=== PATIENT | male | born 1945 | race Caucasian/White ===

== ENCOUNTER 2020-03-03 15:22 | Inpatient (IN) | payer MEDICARE, BC, SELFPAY ==
--- NOTE | ~2020-03-03 | XR_ITS ---
EXAMINATION: XR chest 1V portable EXAM DATE: 03/03/2020 16:37 INDICATION: Low blood sugar. Altered mental status. TECHNIQUE: Portable AP frontal chest x-ray was obtained. There is no prior study for comparison. FINDINGS: There is ill-defined retrocardiac density suspected which could be developing pneumonia. Th e lungs are otherwise clear. There are no pleural effusions. The cardiomediastinal silhouette is wi thin normal limits. There is no pneumothorax suspected. There are bony degenerative changes. There is aortic arterial sclerosis. IMPRESSION: Suspect developing subsegmental left lower lobe pneumonia. Reviewed, dictated and finalized at location A.
--- NOTE | ~2020-03-03 | US_ITS ---
EXAMINATION: US arterial duplex LE DATE: 03/04/2020 12:56 INDICATION: Peripheral vascular disease. TECHNIQUE: Multiple grayscale and Doppler ultrasound images of the arteries of the bilateral lower li mbs were obtained. COMPARISON: None FINDINGS: There are triphasic waveforms at the right common femoral, profunda femoral and proximal to distal ri ght superficial femoral artery with brisk systolic upstrokes throughout. The more distal arteries are not visualized due to a right [id number]-[id number]-vllf amputation. Relatively symmetric triphasic waveforms wi th brisk systolic upstrokes in the left common femoral, profunda femoral and proximal superficial fem oral arteries. This gradually transitions to monophasic waveforms in the mid left superficial femoral artery and extending distally to the left popliteal artery where there is some shadowing atheroscler otic plaque. There is a 2.2 fold increase of the peak systolic velocity proximal and distal to the pl aque in the left popliteal artery which approaches but does not exceed the 2.4 fold increase which in some stasis been used indicating a greater than 50% stenosis. There continue to be sharp systolic pe aks with brisk upstrokes in the more distal left posterior tibial, peroneal and anterior tibial arter ies. IMPRESSION: 1. No ultrasound findings to suggest hemodynamically significant stenosis in either lower limb. Reviewed, dictated and finalized at location A. IMPRESSION: 1. No ultrasound findings to suggest hemodynamically significant stenosis in ei ther lower limb.
--- NOTE | ~2020-03-03 | XR_ITS ---
EXAMINATION: XR foot LT min 3V EXAM DATE: 03/03/2020 16:38 INDICATION: Open wounds 2 foot. TECHNIQUE: Left foot dorsoplantar, lateral and oblique projections obtained and reviewed. Correlation is made to tibia-fibula exam same date. FINDINGS: Left metatarsal bones unremarkable. There is moderate-sized inferior calcaneal spur. The re is benign-appearing bony protuberance at the superior aspect of the talar beak seen on lateral pro jection, finding indicated. This could be sequela from an old avulsion injury. No evidence of cortica l disruption or erosion. There are no acute fractures or dislocations identified. There is no subcutaneous gas. There are ar terial calcifications, arteriosclerosis. There are no bony erosions identified. There are no radio paque foreign bodies. IMPRESSION: Chronic findings as above. Reviewed, dictated and finalized at location A. IMPRESSION: Chronic findings as above.
--- NOTE | ~2020-03-03 | XR_ITS ---
EXAMINATION: XR tibia fibula LT 2V EXAM DATE: 03/03/2020 16:38 INDICATION: Open wound. Left leg and foot. TECHNIQUE: Left tibia/fibula frontal and lateral projections obtained and reviewed. There is no prio r study for comparison. FINDINGS: Left tibial and fibular shafts unremarkable. There are no acute fractures or dislocations identified. There is no subcutaneous gas. There are arterial calcifications, arteriosclerosis. Ther e is mild polyarticular primary osteoarthritis. There are no radiopaque foreign bodies. IMPRESSION: Chronic findings as above. Reviewed, dictated and finalized at location A. IMPRESSION: Chronic findings as above.
--- NOTE | ~2020-03-03 | MR_ITS ---
EXAMINATION: MR foot LT wo/w con DATE: 03/07/2020 13:04 INDICATION: Left-sided osteomyelitis. TECHNIQUE: Magnetic resonance imaging (MRI) of the left foot was performed without and with 13 mL Mul tiHance intravenous contrast. Sequences included sagittal STIR FSE and T1-weighted FSE and short-axis and long-axis T1-weighted FSE and T2-weighted FS FSE. Postcontrast sequences included short-axis and long-axis T1-weighted FS FSE. COMPARISON: Left foot radiographs 03/03/2020 FINDINGS: Bone alignment is normal. No fracture. There is an ulcer lateral to lateral malleolus. Ther e is bone marrow edema involving the distal 6 cm of the fibula consistent with osteoarthritis. There is an ulcer posterolateral to calcaneal tuberosity. There is bone marrow edema involving calcaneal tu berosity and calcaneal body, consistent with osteomyelitis. There is an ulcer lateral to base of fift h metatarsal. There is bone marrow edema involving the proximal 3 cm of fifth metatarsal, consistent with osteomyelitis. There is moderate osteoarthritis of subtalar joint and calcaneocuboid joint. Ther e is mild osteoarthritis of the ankle joint and many of the midfoot joints. There is a small effusion of the subtalar joint. There is thickening of central band of plantar fascia, consistent with fascii tis. There is increased T2-weighted signal intensity, enhancement, and moderate to severe fatty atrop hy of all the musculature, consistent with subacute on chronic denervation. There is mild peroneus br omkar tendinopathy and Achilles tendinopathy. Lisfranc ligament is intact. There is subcutaneous edema in the dorsum of the foot. IMPRESSION: 1. Osteomyelitis involving the distal fibula, base of fifth metatarsal, and calcaneus. Reviewed, dictated and finalized at location E. IMPRESSION: 1. Osteomyelitis involving the distal fibula, base of fifth metatarsal, and willian caneus.
--- NOTE | ~2020-03-03 | MR_ITS ---
EXAMINATION: MR lower leg LT wo/w con DATE: 03/07/2020 13:00 INDICATION: Left lower leg osteomyelitis. TECHNIQUE: Magnetic resonance imaging (MRI) of the left tibia and fibula was performed without and wi th 13 mL MultiHance intravenous contrast. Sequences included axial T2-weighted FS FSE, T1-weighted FS E, and T1-weighted FS FSE, coronal and sagittal T1-weighted FSE and STIR FSE, and postcontrast axial T1-weighted FS FSE. COMPARISON: Left tibia and fibula radiographs 03/03/2020 FINDINGS: Bone alignment is normal. No fracture. There are multiple skin defects at the lateral aspec t of the lower leg. There is bone marrow edema of the distal 26 cm of the fibula including the middle and distal thirds with some areas of cortical erosion, consistent with osteoarthritis. There are par tial tears of peroneus longus and peroneus brevis tendons. There is moderate to severe fatty atrophy of all of the musculature. There is increased T2-weighted signal intensity and enhancement involving the majority of the musculature with an anterior predominance, consistent with subacute on chronic de nervation with or without myositis. There is mild Achilles tendinopathy. IMPRESSION: 1. Osteomyelitis involving the middle and distal thirds of the fibula. 2. Diffusely abnormal musculature, consistent with subacute on chronic denervation, likely with some component of superimposed myositis. 3. Partial tears of peroneus brevis and peroneus longus tendons. Reviewed, dictated and finalized at location E. IMPRESSION: 1. Osteomyelitis involving the middle and distal thirds of the fibula. 2. Diffusely abnormal musculature, consistent with subacute on chronic denervat ion, likely with some component of superimposed myositis. 3. Partial tears of peroneus brevis and peroneus longus tendons.
[2020-03-03 15:33] LABS: Glucose Point of Care 56 (65-105)
--- NOTE | 2020-03-03 15:40 | ECG_ITS ---
Measurements Intervals [place] Rate: 92 P: 29 WV: 199 QRS: -60 QRSD: 111 T: 56 QT: 378 QTc: 468 Interpretive Statements SINUS RHYTHM INCOMPLETE RIGHT BUNDLE BRANCH BLOCK LEFT ANTERIOR FASCICULAR BLOCK BASELINE WANDER- I, II, III ABNORMAL ECG Electronically Signed On 03-03-2020 15:54:05 CDT by Cristi Dinero D.O.
[2020-03-03] MEDS: DEXTROSE 50% 25 GM/50 ML SYRINGE (15:41)
[2020-03-03 15:52] LABS: Glucose Point of Care 160 (65-105)
[2020-03-03 15:55] VITALS: BP 145/63; PULSE 90; RESP 21; TEMP 36.2; O2SAT 100
[2020-03-03 16:04] LABS: Add Urine Microscopic? YES; Appearance Urine Clear (Clear); Bilirubin Urine Negative (Negative); Blood Urine Negative (Negative); Color Urine Yellow (Yellow); Glucose Urine UA Negative (Negative); Ketones Urine Negative (Negative); Leukocyte Esterase Ur Negative LEU/UL (Negative); Mucus Urine Rare /lpf; Nitrate Urine Negative (Negative); Protein Urine Negative (Negative); RBC Urine 0-2 /hpf (0-2); Specific Grav Ur 1.014 (1.001-1.035); WBC Urine 0-3 /hpf
[2020-03-03 17:00] LABS: Hematocrit 38.9 % (42.0-52.0); Hemoglobin 12.5 g/dL (14.0-18.0); Mean Corpuscular HGB Conc 32.1 g/dl (32-36); Mean Corpuscular Hemoglobin 26.8 pg (26-34); Mean Corpuscular Volume 83.3 fl (80-100); Mean Platelet Volume 9.5 fl (7.4-10.4); Platelet Count Result 443 k/mm3 (150-375); Red Blood Count 4.67 M/mm3 (4.6-6.20); Red Cell Distribution Width 12.8 % (11.5-14.5); White Blood Count 21.6 K/mm3 (4.5-10.0)
[2020-03-03 17:11] LABS: Alanine Aminotransferase 19 U/L (4-50); Albumin Level 3.3 g/dL (3.5-5.1); Alkaline Phosphatase 225 U/L (38-126); Aspartate Amino Transferase 32 U/L (17-59); Bilirubin,Total 0.6 mg/dL (0.2-1.3); Blood Urea Nitrogen 19 mg/dL (9-20); Calcium 8.8 mg/dL (8.4-10.2); Carbon Dioxide 32 mmol/L (22-30); Chloride 96 mmol/L (98-107); Estimated CRCL calculation 63 ml/min; Estimated Glomerular Filt Rate > 60; Glucose 102 mg/dL (75-110); Sodium 135 mmol/L (137-145)
[2020-03-03 17:12] LABS: Lactic Acid Reflex 1.4 mmol/L (0.7-2.1)
[2020-03-03 17:20] LABS: Band Neutrophils Percent 1 % (0-6); Lymphocytes Absolute Manual 0.86 K/mm3 (1.1-4.5); Monocytes Absolute Manual 1.29 K/mm3 (0.1-0.90); Monocytes Percent Manual 6 % (3-9); Neutrophils Absolute Manual 19.44 K/mm3 (1.3-6.7); Neutrophils Percent Manual 89 % (46-73); Platelet Estimate Increased (Adequate); Total Cells Counted 100
--- NOTE | 2020-03-03 17:34 | PC.NURSE ---
RN at bedside now trying to get cultures.
[2020-03-03 17:35] VITALS: BP 157/63; PULSE 89; RESP 15; O2SAT 94
--- NOTE | 2020-03-03 17:39 | ED.GENADULT ---
HPI - General Adult General Chief complaint: Altered Mental Status Stated complaint: AMS/LOW BLOOD SUGAR Time Seen by Provider: 03/03/20 15:30 History of Present Illness HPI narrative: Patient is a 74-year-old male who presents to the ER from [facility] with altered mental status. Staff reports that patient's Accu-Chek was low and he gave glucagon and the Accu-Chek remained in the 50s. Patient received D50 here but still remains oriented x2. Patient was [facility] who is concerned patient may be septic. Reports patient could have UTI or could be related to some pressure ulcers of the left lower extremity. Due to the COVID pandemic he has not been able to have the ulcers fully worked up. Ulcerations are located to the lateral aspect of the foot at the distal fifth metatarsal and the proximal heel. They also extend up the lateral calf region and extend into the muscle. There is no purulent drainage. There is no cellulitis. Related Data Home Medications Medication Instructions Recorded Confirmed Daily Multivitamin 1 cap BYMOUTH DAILY 10/02/19 10/02/19 Florastor 250 mg PO DAILY 10/02/19 10/02/19 Januvia 100 mg PO DAILY 10/02/19 10/02/19 L.acidophilus-Bifido.longum 16 mg PO DAILY 10/02/19 10/02/19 ascorbic acid (vitamin C) 500 mg BYMOUTH DAILY 10/02/19 10/02/19 aspirin [Aspirin Low Dose] 81 mg PO DAILY 10/02/19 10/02/19 atorvastatin 20 mg PO HS 10/02/19 10/02/19 metformin 500 mg PO BID 10/02/19 10/02/19 nitrofurantoin macrocrystal 100 mg PO Q12H 10/02/19 10/02/19 zinc sulfate 220 mg PO DAILY 10/02/19 10/02/19 atorvastatin 03/03/20 insulin glargine [Lantus U-100 SUBCUT 03/03/20 Insulin] insulin lispro unit SUBCUT 03/03/20 metoclopramide HCl 5 mg PO DAILY 03/03/20 03/03/20 Allergies Allergy/AdvReac Type Severity Reaction Status Date / Time No Known Allergies Allergy Verified 03/03/20 16:13 Review of Systems Review of Systems: ROS unobtainable: Yes unobtainable due to mental status PMFSH Past Medical History Medical History (Updated 03/03/20 @ 17:56 by Ubaldo Keller MD) Appendicitis Diabetes mellitus with peripheral vascular disease Diabetic neuropathy HLD (hyperlipidemia) PVD (peripheral vascular disease) Surgical History Surgical History History of orchiectomy left Hx of appendectomy Hx of right BKA Hx of tonsillectomy Social History Social History Social History: patient currently resides at [facility] for rehab. He is . He has 3 sons. He designates his son Gabo Rojas as his POA. He wishes to be a DNR. Smoking packs per day: 1 Smoking cigarettes per day: 20.0 Years smoked: 20 Smoking pack-years: 20.00 Smoking status: Former smoker Alcohol intake: never Substance use: never Additional living arrangements comments: Patient currently at 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 Gender identity (if verbalized by the patient): Male Spiritual care concerns: No Agree to blood products: Yes Exam Narrative: Exam Narrative: GENERAL: Chronically ill-appearing and thin, and in no acute distress. HEAD: Normocephalic, atraumatic. EYES: PERRL and EOMI. ENT: Dry mucous membranes. CHEST: Clear to auscultation. No respiratory distress. HEART: Regular rate and rhythm. Normal peripheral pulses. ABDOMEN: Soft, nontender, nondistended. EXTREMITIES: Moves upper extremities well. Chronic weakness lower extremities. The left foot is very dry and cracked. There are pressure ulcerations going to subcutaneous tissue of the foot at the distal foot laterally and into the muscle lateral heel. There is a very large proximal ulceration to the lateral calf that extends into the muscles. There is no purulent drainage or surrounding cellulitis noted. SKIN: Warm, dry, ulcers as noted above N
[2020-03-03 18:31] VITALS: BP 153/88; PULSE 92
[2020-03-03 19:00] LABS: Glucose Point of Care 151 (65-105)
--- NOTE | 2020-03-03 19:42 | PC.NURSE ---
PTs sons name is Gabo Rojas, called to check on pt. phone number is [phone]
[2020-03-03 20:10] VITALS: BP 149/89; PULSE 94; RESP 18; O2SAT 97
[2020-03-03 20:30] VITALS: BP 132/62; PULSE 85; RESP 18; TEMP 36.5; O2SAT 97
[2020-03-03 21:00] VITALS: PULSE 84
[2020-03-03] MEDS: SODIUM CHLORIDE 0.9% IV 1,000 ML 125 ML IV CONT (22:03)
[2020-03-03 23:24] LABS: Glucose Point of Care 179 (65-105)
--- NOTE | 2020-03-03 23:39 | ADMGEN ---
This patient, Eugenio Rojas, was admitted to [facility] Surg Room 332-01. Patient/family oriented to hospital policies and general routines including ID bracelet, bed and alarms, visiting hours, pain management, procedures, bathroom and other care routines, personal items, smoking policy, room service/diet, and visiting hours. Valuables list has been completed. Information on how to activate the Rapid Response Team has been discussed. Patient/Family are encouraged to report perceived risks to care and to ask questions if they do not understand what they are told or what they should do.
[2020-03-04] VITALS (12 sets, daily range): BP systolic 126–137; BP diastolic 43–70; PULSE 59–88; RESP 16–18; TEMP 36.3–36.8; O2SAT 94–97
--- NOTE | 2020-03-04 | ECHO_ITS ---
Patient Info Name: Eugenio Rojas Age: 74 years : 1945 Gender: Male Ht: 71 in Wt: 143 lbs BSA: 1.79 m2 HR: 79 bpm BP: 126 / 70 mmHg Technical Quality: Good Exam Date: 03/04/2020 3:43 PM Exam Location: [facility] Pulmonary Exam Room: 332 Patient Status: Inpatient Admit Date: 03/04/2020 Staff Ordering Physician: Ascencion Christy MD Cable Tv Installer: Cass Lemos RDCS Attending Provider: Anita Monzon PA-C Referring Physician: [facility] Exam Type: CA echo doppler color flow Study Info Indications - chf Complete two-dimensional, color flow and Doppler transthoracic echocardiogram is performed. Summary 1. Left ventricular systolic function is normal, estimated at 65-70%. 2. There is mildly increased left ventricular wall thickness. 3. The left ventricular diastolic function is grade I diastolic dysfunction. Left Ventricle Left ventricular chamber dimension is normal. Left ventricular systolic function is normal, estimated at 65-70%. There is mildly increased left ventricular wall thickness. Left ventricular septal wall motion is normal. The left ventricular diastolic function is grade I diastolic dysfunction. Right Ventricle Right ventricular chamber dimension is normal. Right ventricular systolic function is normal. Left Atria Left atrial chamber dimension is mildly enlarged. Right Atria Right atrial chamber dimension is normal. Aortic Valve The aortic valve is trileaflet. There is mild aortic valve sclerosis. There is no aortic valve stenosis. There is no aortic valve regurgitation. Pulmonic Valve The pulmonic valve is normal. There is no pulmonic valve stenosis. There is no pulmonic regurgitation. Mitral Valve The mitral valve has normal leaflets. There is no mitral valve stenosis. There is trace mitral valve regurgitation. Tricuspid Valve The tricuspid valve leaflets are normal. There is no significant tricuspid valve stenosis. There is no tricuspid valve regurgitation. No pulmonary hypertension, estimated pulmonary arterial systolic pressure is 23 mmHg. Pericardium/Pleural The pericardium appears normal. There is no pericardial effusion. Inferior Vena Cava Normal inferior vena cava with >50% collapse upon inspiration consistent with normal right atrial pressure, 10 mmHg. Aorta The aortic root size at the sinus of Valsalva is normal. The prox ascending aorta size is normal. Left Ventricular Outflow Tract Name Value Normal LVOT 2D LVOT Diameter 2.0 cm LVOT Doppler LVOT Peak Gradient 3 mmHg LVOT Mean Gradient 2 mmHg LVOT VTI 20 cm LVOT VTI/AV VTI Ratio 0.7 LVOT Stroke Volume 63 ml LVOT CO 12.0 l/min LVOT CI 6.7 l/min/m2 Pulmonic Valve Name Value Normal
--- NOTE | 2020-03-04 02:55 | PM.IMHP ---
H&P: HPI History of Present Illness Chief complaint: AMS, Hypoglycemia, Pneumonia, Pressure Ulcers Narrative: Date and time of patient contact: 03/03/2020 at 11:45 p.m. Eugenio Rojas is a 74 year old male with past medical history of insulin-dependent diabetes, and peripheral vascular disease who presented to the ER from [facility] with altered mental status and low blood sugar. Patient is reportedly alert orient x4 at baseline but is only been alert and orient x1 for the last 2 days. Patient's blood sugar was 39 at lunch and he was given glucose. Despite glucagon patient's glucoses were 59 on EMS arrival. The patient was alert orient x2 in the ER and at the time of my evaluation. The halfway physician was concerned that the patient may be septic. The patient has had some ulcers on his left lower extremity. When he was Ms. the hospital in September 2019 he had a left heel ulcer that appear to be healing well at the time. Now he has a ulcer on his lateral left foot,, left heel, lateral left ankle, and extending up through the calf. He has multiple areas of eschar in the ulcerations extended into the muscle. There is no obvious purulence drainage or cellulitis. Patient has been afebrile since presentation. He reports pain to the left lower extremity with movement of the leg. He has already had a right [id number] amputation. The patient has been in [facility] since May when he fell in resulting in abrasion and cellulitis to his stump. Since he was placed in the halfway he has had a significant decline in his condition. The patient does have stage II-III decubitus ulcers to his buttocks as well which are new. The patient's son's reported to nursing staff that the patient has had a significant decline in condition patient has been incontinent of urine and depends are in place. Source of information is past medical records and ER records. Patient self is a poor historian. He spent a great deal of the time that was in the room staring off into space. Prior documentation states the patient wanted to be a DNR. However his papers from the halfway indicate that he is full code. The patient is unable to communicate his desires at this time due to his mental status. Review of Systems Review of Systems: Narrative: 12 systems were reviewed with pertinent positives and negatives per HPI. Except as documented in the HPI, all other systems were reviewed and are negative. However there limited as the patient is an extremely poor historian. [facility] Past Medical History Medical History (Updated 03/04/20 @ 08:31 by Carolina Landis DO) Acute urinary retention September 2019 due to fecal impact Chronic pancreatitis Noted on imaging September 2019 Diabetes mellitus with peripheral vascular disease Diabetic neuropathy HLD (hyperlipidemia) PVD (peripheral vascular disease) Surgical History Surgical History History of orchiectomy left Hx of appendectomy Hx of right BKA Hx of tonsillectomy Family History Family History Father Congestive heart failure Mother , age 95 No problems noted. Sibling , sister at age 69; had drug addiction Drug addiction Social History Social History Social History: patient currently resides at [facility] for rehab. He is . He has 3 sons. He designates his son Gabo Rojas as his POA. He wishes to be a DNR. 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 Gender identity (if verbalized
[2020-03-04] MEDS: HEPARIN SOD/D5W 100 UNITS/ML 25,000 UNITS/250 ML BAG 12 UNITS IV CONT (03:29)
[2020-03-04] MEDS: SODIUM CHLORIDE 0.9% IV 1,000 ML 125 ML IV CONT (05:54)
[2020-03-04 06:27] LABS: Basophils Absolute Auto 0.1 K/mm3 (0.0-0.1); Basophils Percent Auto 0.6 % (0.2-1.2); Eosinophils Absolute Auto 0.2 K/mm3 (0-0.3); Eosinophils Percent Auto 1.7 % (0-4.4); Hemoglobin 11.1 g/dL (14.0-18.0); Immature Granulocyte Absolute 0.06 K/mm3 (0.00-0.031); Immature Granulocyte Percent A 0.5 % (0-0.5); Lymphocytes Absolute Auto 0.75 K/mm3 (0.9-3.2); Lymphocytes Percent Auto 6.1 % (18.3-44.2); Mean Corpuscular HGB Conc 31.7 g/dl (32-36); Mean Corpuscular Hemoglobin 26.9 pg (26-34); Mean Corpuscular Volume 84.7 fl (80-100); Mean Platelet Volume 9.5 fl (7.4-10.4); Monocytes Absolute Auto 1.2 K/mm3 (0.1-0.6); Monocytes Percent Auto 9.3 % (2.6-8.5); Neutrophils Absolute Auto 10.1 K/mm3 (1.3-6.7); Neutrophils Percent Auto 81.8 % (45.5-73.1); Platelet Count Result 381 k/mm3 (150-375); Red Blood Count 4.13 M/mm3 (4.6-6.20); Red Cell Distribution Width 12.9 % (11.5-14.5); White Blood Count 12.3 K/mm3 (4.5-10.0)
[2020-03-04 06:36] LABS: INR 1.4; Prothrombin Time 16.3 Seconds (11.1-14.7)
[2020-03-04 06:37] LABS: Partial Thromboplastin Time 56.5 SECONDS (22.3-36.8)
[2020-03-04 06:43] LABS: Blood Urea Nitrogen 18 mg/dL (9-20); Calcium 8.2 mg/dL (8.4-10.2); Carbon Dioxide 32 mmol/L (22-30); Chloride 98 mmol/L (98-107); Estimated CRCL calculation 82 ml/min; Estimated Glomerular Filt Rate > 60; Glucose 159 mg/dL (75-110); Potassium 3.7 mmol/L (3.4-5.0); Sodium 134 mmol/L (137-145)
[2020-03-04 08:23] LABS: Cholesterol 80 mg/dL (0-200); HDL Direct 21 mg/dL; Triglycerides 60 mg/dL (<150)
[2020-03-04 08:34] LABS: LDL Cholesterol Direct 41 mg/dL
[2020-03-04] MEDS: SODIUM CHLORIDE 0.9% IV 500 ML 100 ML IV CONT ×2 (09:35→17:30)
--- NOTE | 2020-03-04 09:36 | PM.CNCAR ---
Assessment and Plan Assessment and plan (1) Hypoglycemia associated with diabetes: Code(s): E11.649 - Type 2 diabetes mellitus with hypoglycemia without coma Status: Acute (2) Pneumonia: Qualifiers: Laterality: left Lung location: lower lobe of lung Pneumonia type: due to unspecified organism Qualified Code(s): J18.9 - Pneumonia, unspecified organism Code(s): J18.9 - Pneumonia, unspecified organism Status: Acute Assessment and Plan: Currently he is on IV antibiotics, white count is improving, will check blood culture before we proceed with any procedures (3) Altered mental status: Code(s): R41.82 - Altered mental status, unspecified Status: Acute (4) Leg ulcer, left: Qualifiers: Non-pressure ulcer stage: with necrosis of muscle Qualified Code(s): L97.923 - 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 Code(s): L97.929 - Non-pressure chronic ulcer of unspecified part of left lower leg with unspecified severity Status: Acute Assessment and Plan: Luis F has severe peripheral vascular disease with chronic ulcer, but now with diminished flow, and limb threatening ischemia. Will obtain arterial duplex to localize the narrowing and disease, he will need to have angiogram and possible intervention for revascularization, will plan this once his white count is down and if his blood cultures are negative (5) Diabetes mellitus with peripheral vascular disease: Code(s): E11.51 - Type 2 diabetes mellitus with diabetic peripheral angiopathy without gangrene Status: Acute (6) PVD (peripheral vascular disease): Code(s): I73.9 - Peripheral vascular disease, unspecified Status: Acute Assessment and Plan: Severe with previous amputation of the right leg below the knee, now with threatening ischemia of the left leg (7) Non-healing ulcer of left ankle: Code(s): L97.329 - Non-pressure chronic ulcer of left ankle with unspecified severity Status: Acute Assessment and Plan: The ulcer seems to be chronic but there is red marking surrounding the lesion, definitely he needs to have revascularization to improve the healing of the ulcer. After revascularization he would need debridement, or possible distal amputation, depending on the results after revascularization (8) Critical lower limb ischemia: Code(s): I99.8 - Other disorder of circulatory system Status: Acute Assessment and Plan: Will plan peripheral angiogram with possible intervention possibly tomorrow if blood cultures are negative and his white blood cell count is back to normal Additional Plan Thank you for allowing me to participate in this patient's care, I will be following up with you. Please do not hesitate to call me for any other inquiry History of Present Illness History of Present Illness Consult date/time: 03/04/20 09:36 74 years old gentleman, with history of hypertension, history of stroke and history of peripheral vascular disease previous amputation to the right [id number], was admitted to the hospital due to mental status changes noted to have significant elevation of white blood cell count, and noted to have severe ulceration of the left ankle and left lateral side of the lower portion of the left leg, he has chronic pain there, I was asked to see him for possible treatment from cardiovascular point of view, in view of limb threatening ischemia. The patient himself is not very good history most of the history was taken from the chart, reviewing other provider's note, apparently the patient came in with mental status changes noted to have pneumonia and elevated white blood cell count, currently he is on IV heparin due to a ischemia of the leg and he is on IV antibiotics due to the possible suspected pneumonia. His white blood cell count improved but still elevated today. He has mild-to-mod
[2020-03-04] MEDS: polyethylene glycoL 3350 17 GM POWD.PACK PO (09:38)
[2020-03-04] MEDS: ASPIRIN 81 MG ENTERIC TABLET PO (09:38)
[2020-03-04] MEDS: MULTIVITAMINS THERAPEUTIC TAB (*BKC) 1 TABLET PO (09:38)
[2020-03-04 10:54] LABS: Partial Thromboplastin Time 107.2 SECONDS (22.3-36.8)
[2020-03-04 12:02] LABS: Glucose Point of Care 165 (65-105)
[2020-03-04 14:01] LABS: Glucose Point of Care 273 (65-105)
[2020-03-04 14:02] LABS: SARS-CoV-2 RNA PCR Negative
[2020-03-04] MEDS: INSULIN ASPART (*BKC) 100 UNITS/ML SUB-Q (14:45)
--- NOTE | 2020-03-04 15:25 | PM.IMPN ---
Progress Note: A&P Assessment and Plan (1) Sepsis: Qualifiers: Sepsis type: sepsis due to unspecified organism Code(s): A41.9 - Sepsis, unspecified organism Status: Acute Assessment and Plan: The patient met SIRS criteria at admission with tachypnea and leukocytosis. The suspected source is pneumonia versus his left lower extremity ulcer. He is on IV antibiotics and IV fluids. Blood cultures and wound cultures are pending. He is hemodynamically stable. Continue IV antibiotics Continue to monitor (2) Pneumonia: Qualifiers: Laterality: left Lung location: lower lobe of lung Pneumonia type: due to unspecified organism Qualified Code(s): J18.9 - Pneumonia, unspecified organism Code(s): J18.9 - Pneumonia, unspecified organism Status: Acute Assessment and Plan: CXR revealed density in the left lower lobe suspicious for pneumonia. WBC at admission was 21,600. WBC today is 12,300 and is predominantly neutrophils. COVID-19 testing was negative. He is stable on room air. He does not complain of SOB, cough, fever, or chills today. 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 He is being treated empirically with IV ceftriaxone and vancomycin. Dr. Hays is on board for concomitant PAD with critical limb threatening ischemia. Preliminary wound cultures reveal gram negative bacilli. Continue empiric IV ceftriaxone and vancomycin and await final wound cultures Will consult Dr. Hays for possible vascular intervention (4) PVD (peripheral vascular disease): Code(s): I73.9 - Peripheral vascular disease, unspecified Status: Acute Assessment and Plan: The patient presents with critical limb threatening ischemia of the left lower extremity. He has a right BKA. He is on heparin gtt. Dr. Christy is on board. Arterial duplex revealed triphasic waveforms in the left common femoral, profunda, and proximal SFA which becomes monophasic in the mid left SFA extending distally to the left popliteal. The patient has non-palpable left DP and PT. Left femoral and popliteal pulses are palpable. Continue heparin gtt Continue ASA EC 81mg Continue atorvastatin Await further recommendations from Dr. Christy which are greatly appreciated. The plan is for possible LLE peripheral angiogram with possible intervention tomorrow pending blood cultures and CBC. (5) Hypoglycemia associated with diabetes: Code(s): E11.649 - Type 2 diabetes mellitus with hypoglycemia without coma Status: Acute Assessment and Plan: Blood sugars were reviewed and are acceptable. Blood sugar this afternoon was elevated at 273. Continue lantus 20 units HS, will titrate as needed Continue low-dose sliding scale insulin Continue accu-cheks ACHS Continue hypoglycemia (6) COVID-19 ruled out: Code(s): Z03.818 - Encounter for observation for suspected exposure to other biological agents ruled out Status: Acute Assessment and Plan: The patient was tested for COVID-19 which is negative. Discontinue isolation (7) HLD (hyperlipidemia): Code(s): E78.5 - Hyperlipidemia, unspecified Status: Acute Assessment and Plan: Lipid panel was repeated and reveals LDL 41, HDL 21, and total cholesterol 80. Continue atorvastatin (8) Altered mental status: Code(s): R41.82 - Altered mental status, unspecified Status: Acute Assessment and Plan
[2020-03-04] MEDS: SILVERGEL (ELTA) 45 ML 1 APPLIC TOPICAL (17:55)
[2020-03-04] MEDS: METOCLOPRAMIDE HCL 5 MG TABLET PO ×2 (17:56→21:29)
[2020-03-04 17:58] LABS: Glucose Point of Care 188 (65-105)
[2020-03-04] MEDS: ATORVASTATIN 20 MG TABLET PO (21:29)
[2020-03-04] MEDS: INSULIN GLARGINE (*BKC) 100 UNITS/ML 20 UNITS SUB-Q (21:37)
--- NOTE | 2020-03-04 21:54 | PC.NURSE ---
Electrical Wiring Lineman unable to draw for PPT orders, they're sending another person to try.
[2020-03-04 22:58] LABS: Glucose Point of Care 237 (65-105)
--- NOTE | 2020-03-04 23:00 | PC.NURSE ---
Patient refusing to get drawn by lab for PTT due to heparin drip. He was explained the importance for the lab draw several times.
[2020-03-05] VITALS (22 sets, daily range): BP systolic 130–166; BP diastolic 39–85; PULSE 61–76; RESP 9–18; TEMP 36.2–36.4; O2SAT 96–100
[2020-03-05] MEDS: HEPARIN SODIUM 5,000 UNITS/ML VIAL 5000 UNITS IV PUSH (01:01)
[2020-03-05] MEDS: SODIUM CHLORIDE 0.9% IV 500 ML 100 ML IV CONT (02:12)
[2020-03-05] MEDS: HEPARIN SOD/D5W 100 UNITS/ML 25,000 UNITS/250 ML BAG 14 UNITS IV CONT (04:52)
[2020-03-05] MEDS: METOCLOPRAMIDE HCL 5 MG TABLET PO ×2 (06:57→22:14)
[2020-03-05 07:16] LABS: Basophils Absolute Auto 0.1 K/mm3 (0.0-0.1); Basophils Percent Auto 0.7 % (0.2-1.2); Eosinophils Absolute Auto 0.6 K/mm3 (0-0.3); Hematocrit 32.8 % (42.0-52.0); Hemoglobin 10.4 g/dL (14.0-18.0); Immature Granulocyte Absolute 0.03 K/mm3 (0.00-0.031); Immature Granulocyte Percent A 0.4 % (0-0.5); Lymphocytes Absolute Auto 0.89 K/mm3 (0.9-3.2); Lymphocytes Percent Auto 10.6 % (18.3-44.2); Mean Corpuscular HGB Conc 31.7 g/dl (32-36); Mean Corpuscular Hemoglobin 26.5 pg (26-34); Mean Corpuscular Volume 83.7 fl (80-100); Mean Platelet Volume 9.6 fl (7.4-10.4); Monocytes Absolute Auto 0.9 K/mm3 (0.1-0.6); Monocytes Percent Auto 10.5 % (2.6-8.5); Neutrophils Absolute Auto 5.9 K/mm3 (1.3-6.7); Neutrophils Percent Auto 70.8 % (45.5-73.1); Platelet Count Result 337 k/mm3 (150-375); Red Blood Count 3.92 M/mm3 (4.6-6.20); Red Cell Distribution Width 12.6 % (11.5-14.5); White Blood Count 8.4 K/mm3 (4.5-10.0)
[2020-03-05 07:24] LABS: Alanine Aminotransferase 14 U/L (4-50); Albumin Level 2.5 g/dL (3.5-5.1); Alkaline Phosphatase 136 U/L (38-126); Aspartate Amino Transferase 22 U/L (17-59); Bilirubin,Total 0.2 mg/dL (0.2-1.3); Blood Urea Nitrogen 11 mg/dL (9-20); Calcium 7.9 mg/dL (8.4-10.2); Carbon Dioxide 33 mmol/L (22-30); Chloride 100 mmol/L (98-107); Estimated CRCL calculation 97 ml/min; Estimated Glomerular Filt Rate > 60; Glucose 156 mg/dL (75-110); Magnesium 1.7 mg/dL (1.6-2.3); Potassium 3.4 mmol/L (3.4-5.0); Sodium 137 mmol/L (137-145)
[2020-03-05 08:14] LABS: Partial Thromboplastin Time > 200.0 SECONDS (22.3-36.8)
[2020-03-05] MEDS: SODIUM CHLORIDE 0.9% IV 1,000 ML 100 ML IV CONT (08:18)
[2020-03-05 08:58] LABS: Glucose Point of Care 142 (65-105)
[2020-03-05] MEDS: MULTIVITAMINS THERAPEUTIC TAB (*BKC) 1 TABLET PO (09:34)
[2020-03-05] MEDS: ASPIRIN 81 MG ENTERIC TABLET PO (09:37)
[2020-03-05] MEDS: SILVERGEL (ELTA) 45 ML 1 APPLIC TOPICAL (10:12)
--- NOTE | 2020-03-05 11:45 | PC.NURSE ---
Patient to r&d lab technician patient saline locked at this time.
--- NOTE | 2020-03-05 12:08 | WPDMODSED ---
Moderate Sedation Note-Pt Data Patient Data Allergies Allergy/AdvReac Type Severity Reaction Status Date / Time No Known Allergies Allergy Verified 03/03/20 16:13 Home Medications Medication Instructions Recorded Confirmed Type Daily Multivitamin 1 cap BYMOUTH DAILY 10/02/19 03/03/20 History Januvia 100 mg PO DAILY 10/02/19 03/03/20 History aspirin [Aspirin Low Dose] 81 mg PO DAILY 10/02/19 03/03/20 History metformin 500 mg PO BID 10/02/19 03/03/20 History metoclopramide HCl [Reglan] 5 mg PO ACHS 30 Days #120 tablet 10/05/19 03/03/20 Rx polyethylene glycol 3350 [Miralax] 17 g PO Q12HR 30 Days #60 each 10/05/19 03/03/20 Rx amino acids-protein hydrolys 30 ea PO BID 03/03/20 03/03/20 History [Pro-Stat Sugar Free] atorvastatin 20 mg PO HS 03/03/20 03/03/20 History insulin glargine [Lantus U-100 35 unit SUBCUT HS 03/03/20 03/03/20 History Insulin] insulin lispro See Rx Instructions .ROUTE .COMPLEX 03/03/20 03/03/20 History Current Medications: Active Medications Acetaminophen (Tylenol Tablet) 650 mg PO Q4H PRN PRN Reason: Mild Pain (1-3) or Fever Hydrocodone Bitart/Acetaminophen (Paulding 5-325 Mg) 1 tab PO Q4H PRN PRN Reason: Pain Rated 4-6 Aspirin (Aspirin Ec) 81 mg PO DAILY [facility] Last Admin: 03/05/20 09:37 Dose: 81 mg Documented by: Atorvastatin Calcium (Lipitor) 20 mg PO [facility] Last Admin: 03/04/20 21:29 Dose: 20 mg Documented by: Dextrose (Dextrose 50% Syringe) 12.5 gm IV PUSH PRN PRN; Protocol PRN Reason: Hypoglycemia Glucagon (Glucagon For Inj) 1 mg IM PRN PRN; Protocol PRN Reason: Hypoglycemia Glucose (Glutose 15) 15 gm PO PRN PRN; Protocol PRN Reason: Hypoglycemia Heparin Sodium (Porcine) (Heparin Sodium) 5,000 units IV PUSH PRN PRN PRN Reason: aPTT less than 55 seconds Last Admin: 03/05/20 01:01 Dose: 5,000 units Documented by: Heparin Sodium (Porcine) (Heparin Sodium) 2,500 units IV PUSH PRN PRN PRN Reason: aPTT 55 - 70 seconds Ceftriaxone Sodium/Dextrose (Rocephin 1 Gm/D5w 50 Ml) 1 gm in 50 mls @ 100 mls/hr IVPB Q24H [facility] Last Infusion: 03/04/20 18:26 Dose: Infused Documented by: Azithromycin (Zithromax) 500 mg in 250 mls @ 250 mls/hr IVPB Q24H [facility] Last Infusion: 03/04/20 20:40 Dose: Infused Documented by: Dextrose (Dextrose 5% 1,000 Ml) 1,000 mls @ 100 mls/hr IVPB PRN PRN; Protocol PRN Reason: Hypoglycemia Heparin Sodium/Dextrose (Heparin Sodium/D5w 100 Units/Ml) 25,000 units in 250 mls @ 0 mls/hr IV CONT .Q0M [facility]; Protocol Last Titration: 03/05/20 11:44 Dose: 0 units/hr, 0 mls/hr Documented by: Vancomycin HCl (Vancomycin 1,000 Mg/D5w 250 Ml) 1,000 mg in 250 mls @ 250 mls/hr IVPB Q12H [facility] Last Infusion: 03/05/20 10:59 Dose: Infused Documented by: Sodium Chloride (Normal Saline Iv) 1,000 mls @ 100 mls/hr IV CONT .Q10H [facility] Last Admin: 03/05/20 08:18 Dose: 100 mls/hr Documented by: Insulin Aspart (Novolog) 2 - 5 units SUB-Q TIDWM [facility]; Protocol Last Admin: 03/05/20 09:26 Dose: Not Given Documented by: Insulin Glargine (Lantus) 20 units SUB-Q HS [facility] Last Admin: 03/04/20 21:37 Dose: 20 units Documented by: Metoclopramide HCl (Reglan) 5 mg PO ACHS [facility] Last Admin: 03/05/20 06:57 Dose: 5 mg Documented by: Morphine Sulfate (Morphine Sulfate Inj) 4 mg IV PUSH Q2H PRN PRN Reason: Pain Rated 7-10 Multivitamins Therapeutic (Multivitamins Therapeutic(*Bkc) 1 tablet PO DAILY [facility] Last Admin: 03/05/20 09:34 Dose: 1 tablet Documented by: Ondansetron HCl (Zofran Inj) 4 mg IV PUSH Q4H PRN PRN Reason: Nausea Polyethylene Glycol (Miralax) 17 gm PO Q12HR [facility] Last Admin: 03/04/20 21:31 Dose: Not Given Documented by: Silver Nitrate (Silvergel) 1 applic TOPICAL DAILY [facility] Last Admin: 03/05/20 10:12 Dose: 1 applic Documented by: Sedation/Anesthesia: No previous sedation/anesthesia problems (including family history). PMFSH Past Medical History Medical History Acute urinary retention Decemb
--- NOTE | 2020-03-05 14:07 | PM.PNCARD ---
Progress Note: A&P Assessment and Plan (1) Hypoglycemia associated with diabetes: Code(s): E11.649 - Type 2 diabetes mellitus with hypoglycemia without coma Status: Acute (2) Pneumonia: Qualifiers: Laterality: left Lung location: lower lobe of lung Pneumonia type: due to unspecified organism Qualified Code(s): J18.9 - Pneumonia, unspecified organism Code(s): J18.9 - Pneumonia, unspecified organism Status: Acute Assessment and Plan: Currently he is on IV antibiotics, white count is improving, will check blood culture before we proceed with any procedures (3) Altered mental status: Code(s): R41.82 - Altered mental status, unspecified Status: Acute (4) Leg ulcer, left: Qualifiers: Non-pressure ulcer stage: with necrosis of muscle Qualified Code(s): L97.923 - 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 He underwent balloon angioplasty with significant improvement of the lesions in the peroneal and with the anterior tibial with significant improvement of the flow. He needs to stay on aspirin and Plavix, with closer monitoring (5) Diabetes mellitus with peripheral vascular disease: Code(s): E11.51 - Type 2 diabetes mellitus with diabetic peripheral angiopathy without gangrene Status: Acute (6) PVD (peripheral vascular disease): Code(s): I73.9 - Peripheral vascular disease, unspecified Status: Acute Assessment and Plan: Severe with previous amputation of the right leg below the knee, now with threatening ischemia of the left leg. He underwent angiogram revealing right common iliac artery stent appears stenosis, left popliteal severe stenosis, total occlusion of the left antral tibial, total occlusion of the left peroneal, and subtotal occlusion of the left posterior tibial. He underwent balloon angioplasty with significant improvement of the lesions in the peroneal and with the anterior tibial with significant improvement of the flow (7) Non-healing ulcer of left ankle: Code(s): L97.329 - Non-pressure chronic ulcer of left ankle with unspecified severity Status: Acute Assessment and Plan: The ulcer seems to be chronic but there is red marking surrounding the lesion, definitely he needs to have revascularization to improve the healing of the ulcer. He underwent angiogram revealing right common iliac artery stent appears stenosis, left popliteal severe stenosis, total occlusion of the left antral tibial, total occlusion of the left peroneal, and subtotal occlusion of the left posterior tibial. He underwent balloon angioplasty with significant improvement of the lesions in the peroneal and with the anterior tibial with significant improvement of the flow (8) Critical lower limb ischemia: Code(s): I99.8 - Other disorder of circulatory system Status: Acute Assessment and Plan: Will plan peripheral angiogram with possible intervention possibly tomorrow if blood cultures are negative and his white blood cell count is back to normal Subjective Date/time seen: 03/05/20 14:07 He feels okay, still with pain of left ankle, initially he was reluctant about the procedure but subsequently he agreed to go for procedure. He underwent angiogram revealing right common iliac artery stent appears stenosis, left popliteal severe stenosis, total occlusion of the left antral tibial, total occlusion of the left peroneal
--- NOTE | 2020-03-05 14:10 | WPDCARDPROC ---
Cardiac Cath Procedure Note Date of procedure:: 03/05/20 Performing physician:: MD Ascencion Capone MD Procedure: 1. Retrograde access to the right common femoral artery, and antegrade access to the left common femoral artery. 2. Abdominal aorta angiogram distal runoff. 3. Right common femoral artery angiogram with distal runoff 4. Balloon angioplasty to the left anterior tibial artery 5. Repeat angiogram to the above. 6. Balloon angioplasty to the proximal peroneal left artery 8. Conscious sedation starting time is 12:05v pm a.m. ending time is 13:35 p.m. using 100 micro g of fentanyl and 3 mg of Versed administered by nurse shoulder under my supervision Armature Coil Winder: Dr. Ascencion Christy Complications: None. Sedation: Conscious sedation, local anesthesia, using 2 mg of Versed said, 50 mcg of fentanyl, and using 1% lidocaine for local anesthesia. Technique: After informed consent was obtained from patient family, was brought to the general laborer, put in the general laborer table, prepped and draped in usual sterile fashion. Left groin was prepped and draped, 1% lidocaine was used for local anesthesia, Access was obtained initially a 5 Fijian sheath, the sheath was flushed. Omniflush catheter was used advanced to the abdominal aorta abdominal aorta angiogram was done with distal runoff. It was noted that there was severe disease of the distal portion of the right common iliac artery makes the case difficult for contralateral access, so at this time it was decided to get access to the left femoral artery using antegrade approach. Six Fijian sheath inserted, visually with micro puncture catheter and subsequently upsized to 6 Fijian sheath. Through this sheath angiogram to left femoral artery was done with distal runoff. The lesions were identified. Subsequently particle wire was inserted advanced with supporting catheter to go through the popliteal and subsequently to the left peroneal vessel, and then balloon angioplasty was done using non compliant 3 x 80 mm balloon. Multiple inflations were done for long duration, with significant improvement of the flow. The wire left in place, another wire was used to engage the anterior tibial, left anterior tibial vessel was wired, the wire was passed to the mid level of the vessel, at this point it was difficult to pass the wire even though I used support catheter, was thus supporting catheter seeker, I was able to push only to mid level of the anterior tibial, at that point balloon angioplasty was done at 2 different locations at the midsection in the proximal section with significant improvement of the flow there. At this point angiogram was done, showed significant improvement of the flow to the foot, and it was felt that this is adequate revascularization at this point. Wires both were removed, and final angiogram was done. The sheath were pulled applying manual pressure for arterial hemostasis. Patient tolerated the procedure no complication, taken from the general laborer to his room in stable condition stable vital signs. Hemodynamics: aortic pressure 144/78 . Angiographic findings: Abdominal aorta with no significant disease or stenosis, left common iliac showed minimal plaque no obstructive lesion, left external iliac showed [id number] diffuse plaque but no obstructive lesion, left internal iliac showed minimal disease. Left common femoral is patent with mild to moderate calcification. Left SFA multiple areas of narrowing, and calcified lesion but ranging from 40-50% the worse is 60% at the distal portion. Left popliteal showed moderate diffuse disease, anterior tibial is totally occluded at the proximal portion seems to be reconstituting distally at the level of the ankle. Peroneal seems to be to totally occluded proximally but reconstitutes at the midsection. Posterior tibial is totally occluded but seems to be filling via collaterals reconstituting at the proximal portion but seems to be small
--- NOTE | 2020-03-05 17:26 | PM.IMPN ---
Progress Note: A&P Assessment and Plan (1) Sepsis: Qualifiers: Sepsis type: sepsis due to unspecified organism Code(s): A41.9 - Sepsis, unspecified organism Status: Acute Assessment and Plan: The patient met SIRS criteria at admission with tachypnea and leukocytosis. The suspected source is pneumonia versus his left lower extremity ulcer. He is on IV antibiotics and IV fluids. Blood cultures reveal NGTD. Wound cultures reveal pseudomonas.He is hemodynamically stable. Continue IV antibiotics Continue to monitor (2) Pneumonia: Qualifiers: Laterality: left Lung location: lower lobe of lung Pneumonia type: due to unspecified organism Qualified Code(s): J18.9 - Pneumonia, unspecified organism Code(s): J18.9 - Pneumonia, unspecified organism Status: Acute Assessment and Plan: CXR revealed density in the left lower lobe suspicious for pneumonia. WBC at admission was 21,600. WBC today is WNL at 8,400. COVID-19 testing was negative. He is stable on room air. He has no complaints of shortness of breath, cough, and chills or subjective fever. He is afebrile. Urine legionella and pneumococcal urine antigens ordered. Sputum culture ordered. Continue IV antibiotics. Due to pseudomonas on wound culture, will change antibiotics to IV zosyn. 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 Dr. Hays is on board for concomitant PAD with critical limb threatening ischemia. Wound culture reveals heavy growth of pseudomonas aeruginosa. Sensitivities are pending. Blood cultures reveal NGTD. Will switch antibiotics to IV zosyn to cover pseudomonas aeruginosa Will consult ID for further recommendations regarding duration of treatment (4) PVD (peripheral vascular disease): Code(s): I73.9 - Peripheral vascular disease, unspecified Status: Acute Assessment and Plan: The patient presents with critical limb threatening ischemia of the left lower extremity. He has a right BKA. He is on heparin gtt. Dr. Christy is on board. Arterial duplex revealed triphasic waveforms in the left common femoral, profunda, and proximal SFA which becomes monophasic in the mid left SFA extending distally to the left popliteal. The patient has non-palpable left DP and PT. Left femoral and popliteal pulses are palpable. He underwent angiogram today by Dr. Christy which revealed severe PVD with subtotal occlusion of the AT, PT, and peroneal at the left side which improved after angioplasty to the AT and peroneal artery with improvement of the flow distally. Continue heparin gtt Continue ASA EC 81mg indefinitely Begin plavix indefinitely Continue atorvastatin Follow-up with Dr. Christy outpatient (5) Hypoglycemia associated with diabetes: Code(s): E11.649 - Type 2 diabetes mellitus with hypoglycemia without coma Status: Acute Assessment and Plan: Blood sugars were reviewed and are acceptable. Continue lantus 20 units HS Continue low-dose sliding scale insulin Continue accu-cheks ACHS Continue hypoglycemia (6) COVID-19 ruled out: Code(s): Z03.818 - Encounter for observation for suspected exposure to other biological agents ruled out Status: Acute Assessment and Plan: The patient was tested for COVID-19 which is negative. Discontinue isolation (7) HLD (hyperlipidemia): Code(s): E78.5 - Hyperlipidemia, unspecified Status:
[2020-03-05 18:15] LABS: Activated Clotting Time 142 sec (74-137)
[2020-03-05 18:15] LABS: Activated Clotting Time 153 sec (74-137)
[2020-03-05 18:15] LABS: Activated Clotting Time 230 sec (74-137)
--- NOTE | 2020-03-05 18:25 | PC.NURSE ---
Jing sent to ICU. I was informed the nurse will be calling back for report.
--- NOTE | 2020-03-05 18:55 | PC.NURSE ---
Pt arrived to ICU @1745. Right groin sheath intact, left groin sheath intact. Left Post tibial pulse was faint however palpable.
[2020-03-05 20:26] LABS: Glucose Point of Care 94 (65-105)
[2020-03-05] MEDS: ATORVASTATIN 20 MG TABLET PO (22:12)
[2020-03-05] MEDS: polyethylene glycoL 3350 17 GM POWD.PACK PO (22:13)
[2020-03-05] MEDS: INSULIN GLARGINE (*BKC) 100 UNITS/ML 20 UNITS SUB-Q (22:19)
[2020-03-06] VITALS (17 sets, daily range): BP systolic 122–160; BP diastolic 43–65; PULSE 70–83; RESP 12–18; TEMP 36.4–37.3; O2SAT 95–100
--- NOTE | 2020-03-06 00:01 | PC.NURSE ---
Pt to transfer to 321. Report called to JUSTYNA Macias.
[2020-03-06] MEDS: CLOPIDOGREL BISULFATE 300 MG TABLET PO (00:13)
[2020-03-06 06:34] LABS: Basophils Absolute Auto 0.1 K/mm3 (0.0-0.1); Basophils Percent Auto 0.5 % (0.2-1.2); Eosinophils Absolute Auto 0.4 K/mm3 (0-0.3); Eosinophils Percent Auto 3.9 % (0-4.4); Hematocrit 33.4 % (42.0-52.0); Hemoglobin 10.8 g/dL (14.0-18.0); Immature Granulocyte Absolute 0.05 K/mm3 (0.00-0.031); Immature Granulocyte Percent A 0.5 % (0-0.5); Lymphocytes Absolute Auto 0.85 K/mm3 (0.9-3.2); Lymphocytes Percent Auto 8.9 % (18.3-44.2); Mean Corpuscular HGB Conc 32.3 g/dl (32-36); Mean Corpuscular Hemoglobin 26.8 pg (26-34); Mean Corpuscular Volume 82.9 fl (80-100); Mean Platelet Volume 9.7 fl (7.4-10.4); Monocytes Absolute Auto 0.8 K/mm3 (0.1-0.6); Monocytes Percent Auto 8.8 % (2.6-8.5); Neutrophils Absolute Auto 7.4 K/mm3 (1.3-6.7); Neutrophils Percent Auto 77.4 % (45.5-73.1); Platelet Count Result 374 k/mm3 (150-375); Red Blood Count 4.03 M/mm3 (4.6-6.20); Red Cell Distribution Width 12.6 % (11.5-14.5); White Blood Count 9.5 K/mm3 (4.5-10.0)
[2020-03-06] MEDS: METOCLOPRAMIDE HCL 5 MG TABLET PO ×4 (06:41→21:20)
[2020-03-06 06:53] LABS: Alanine Aminotransferase 14 U/L (4-50); Albumin Level 2.6 g/dL (3.5-5.1); Alkaline Phosphatase 138 U/L (38-126); Aspartate Amino Transferase 23 U/L (17-59); Bilirubin,Total 0.4 mg/dL (0.2-1.3); Blood Urea Nitrogen 8 mg/dL (9-20); Calcium 8.2 mg/dL (8.4-10.2); Carbon Dioxide 35 mmol/L (22-30); Chloride 100 mmol/L (98-107); Estimated CRCL calculation 97 ml/min; Estimated Glomerular Filt Rate > 60; Glucose 106 mg/dL (75-110); Potassium 3.7 mmol/L (3.4-5.0); Sodium 137 mmol/L (137-145)
[2020-03-06] MEDS: ASPIRIN 81 MG ENTERIC TABLET PO (08:20)
[2020-03-06] MEDS: MULTIVITAMINS THERAPEUTIC TAB (*BKC) 1 TABLET PO (08:21)
[2020-03-06] MEDS: CLOPIDOGREL BISULFATE 75 MG TABLET PO (08:21)
[2020-03-06] MEDS: SILVERGEL (ELTA) 45 ML 1 APPLIC TOPICAL (08:22)
[2020-03-06 08:35] LABS: Glucose Point of Care 106 (65-105)
--- NOTE | 2020-03-06 10:24 | PM.IMPN ---
Progress Note: A&P Assessment and Plan (1) Sepsis: Qualifiers: Sepsis type: sepsis due to unspecified organism Code(s): A41.9 - Sepsis, unspecified organism Status: Resolved Assessment and Plan: The patient met SIRS criteria at admission with tachypnea and leukocytosis. The suspected source is pneumonia versus his left lower extremity ulcer. He is on IV antibiotics and IV fluids. Blood cultures reveal NGTD. Wound cultures reveal pseudomonas. He is hemodynamically stable. Continue IV antibiotics Continue to monitor (2) Pneumonia: Qualifiers: Laterality: left Lung location: lower lobe of lung Pneumonia type: due to unspecified organism Qualified Code(s): J18.9 - Pneumonia, unspecified organism Code(s): J18.9 - Pneumonia, unspecified organism Status: Acute Assessment and Plan: CXR revealed density in the left lower lobe suspicious for pneumonia. WBC is 9,500. COVID-19 testing was negative. Urine legionella and pneumococcal urine antigens as well as sputum culture were ordered and are pending. He is stable on room air without any complaints of shortness of breath, cough, subjective fever, or chills. He is afebrile without leukocytosis. Blood cultures reveal NGTD. Continue IV zosyn Continue mucinex Continue bronchodilators. Will schedule due to suspicion for COPD as he has a hx of smoking and CO2 is elevated with diminished breath sounds. 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 Dr. Hays is on board for concomitant PAD with critical limb threatening ischemia and he underwent angioplasty of the left AT and left peroneal arteries. Wound culture reveals heavy growth of pseudomonas aeruginosa which is susceptible to zosyn. Blood cultures reveal NGTD. Plain films revealed no evidence of osteomyelitis. He is afebrile. ALP was elevated at admission and is trending down. The wound has more purulent drainage today with concern for wet gangrene. Consult placed to general surgery for further evaluation regarding possibility of debridement due to concerns for wet gangrene Continue IV zosyn to cover pseudomonas aeruginosa Will order MRI to r/o osteomyelitis Will consult ID as well (4) PVD (peripheral vascular disease): Code(s): I73.9 - Peripheral vascular disease, unspecified Status: Acute Assessment and Plan: The patient presented with critical limb threatening ischemia of the left lower extremity. He has a right BKA. He was placed on heparin gtt and Dr. Christy was consulted. He underwent angiogram 03/06/[address] Christy which revealed severe PVD with subtotal occlusion of the AT, PT, and peroneal at the left side which improved after angioplasty to the AT and peroneal artery with improvement of the flow distally. He has strong doppler signal present to the left PT. Continue ASA EC 81mg indefinitely per Dr. Christy Begin plavix indefinitely per Dr. Christy Continue atorvastatin Follow-up with Dr. Christy outpatient (5) Hypoglycemia associated with diabetes: Code(s): E11.649 - Type 2 diabetes mellitus with hypoglycemia without coma Status: Acute Assessment and Plan: Blood sugars were reviewed and are acceptable. He was NPO yesteday due to angiogram but I anticipate I will need to titrate insulin as his diet returns to normal. Continue lantus 20 units HS Continue low-dose sliding scale ins
[2020-03-06] MEDS: IPRATROPIUM BR 0.02% INH SOLN 0.5 MG/2.5 ML VIAL INHALATION ×2 (11:37→20:32)
[2020-03-06] MEDS: ALBUTEROL SULFATE NEB 2.5 MG/0.5 ML INH INHALATION ×2 (11:38→20:32)
--- NOTE | 2020-03-06 12:08 | PM.PNCARD ---
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 He underwent angiogram revealing right common iliac artery stent appears stenosis, left popliteal severe stenosis, total occlusion of the left antral tibial, total occlusion of the left peroneal, and subtotal occlusion of the left posterior tibial. He underwent balloon angioplasty with significant improvement of the lesions in the peroneal and with the anterior tibial with significant improvement of the flow. Patient is stable for discharge from cardiac standpoint. 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 Continue wound care. Continue aspirin and Plavix (3) Diabetes mellitus with peripheral vascular disease: Code(s): E11.51 - Type 2 diabetes mellitus with diabetic peripheral angiopathy without gangrene Status: Acute (4) Non-healing ulcer of left ankle: Code(s): L97.329 - Non-pressure chronic ulcer of left ankle with unspecified severity Status: Acute Assessment and Plan: S/p Revascularization to improve the healing of the ulcer. w Additional Plan Thank you for allowing me to participate in this patient's care, I will be following up with you. Please do not hesitate to call me for any other inquiry Subjective Date/time seen: 03/06/20 12:08 Feels okay and volunteers no complaints Review of Systems Constitutional: Constitutional: Reports fatigue, Reports lethargy and Reports weakness Cardiovascular: Cardiovascular: Reports as per HPI and Reports dyspnea Respiratory: Respiratory: Reports cough and Reports dyspnea Gastrointestinal: Gastrointestinal: Denies nausea and Denies vomiting Musculoskeletal: Musculoskeletal: Reports as per HPI Neurologic: Reports weakness Endocrine: Endocrine: Reports fatigue Exam Narrative: Exam Narrative: Awake alert oriented x3 not in acute distress, he is oriented, but he has not very good with detailed seems to be slightly confused on details Neck is supple no obvious JVD, no carotid bruit Chest: Good air entry bilaterally, lungs are clear to auscultation and percussion bilaterally Cardiovascular: Regular rate and rhythm, 2/6 systolic murmur noted left sternal border Abdomen: Soft nontender bowel sounds positive Extremities: No edema has no pulses on the left foot, anterior tibial is absent posterior tibial is absent, popliteal is very diminished. Under right-sided he has [id number] amputation, he has fair right popliteal pulse Objective Data Vital Signs Vital Signs: Vital Signs - 24 hr 03/05/20 14:00 03/05/20 14:15 03/05/20 14:30 Temperature 36.3 C L Pulse Rate 68 68 66 Pulse Rate [Bilateral Pedal (Dorsalis Pedis) Doppler] 68 68 68 Respiratory Rate 10 L 12 9 L Blood Pressure 166/66 H 148/48 H 141/60 H Pulse Oximetry 98 98 99 03/05/20 14:45 03/05/20 15:00 03/05/20 15:30 Temperature Pulse Rate 66 66 74 Pulse Rate [Bilateral Pedal (Dorsalis Pedis) Doppler] 68 68 68 Respiratory Rate 18 14 14 Blood Pressure 144/63 H 154/50 H 166/59 H Pulse Oximetry 98 99 100 03/05/20 16:00 03/05/20 17:06 03/05/20 20:00 Temperature 36.4 C L Pulse Rate 74 74 70 Pulse Rate [Bilateral Pedal (Dorsalis Pedis) Doppler] 68 68 Respiratory Rate 12 14 15 Blood Pressure 158/66 H 138/85 143/60 H Pulse Oximetry 99 97 97 03/05/20 21:00 03/05/20
[2020-03-06] MEDS: ENOXAPARIN 40 MG/0.4 ML SYRINGE SUB-Q (12:27)
[2020-03-06 13:54] LABS: Glucose Point of Care 70 (65-105)
[2020-03-06] MEDS: INSULIN ASPART (*BKC) 100 UNITS/ML SUB-Q (17:22)
[2020-03-06 18:29] LABS: Glucose Point of Care 211 (65-105)
[2020-03-06] MEDS: INSULIN GLARGINE (*BKC) 100 UNITS/ML 20 UNITS SUB-Q (21:18)
[2020-03-06] MEDS: ATORVASTATIN 20 MG TABLET PO (21:18)
[2020-03-06] MEDS: polyethylene glycoL 3350 17 GM POWD.PACK PO (21:20)
--- NOTE | 2020-03-06 21:35 | PC.NURSE ---
Mic NATURE PHOTOGRAPHER notified of B/P and general condition. No new orders at this time. Monitoring closely.
[2020-03-07] VITALS (14 sets, daily range): BP systolic 111–160; BP diastolic 39–70; PULSE 67–85; RESP 16–18; TEMP 36.2–36.3; O2SAT 95–100
[2020-03-07] MEDS: ALBUTEROL SULFATE NEB 2.5 MG/0.5 ML INH INHALATION ×4 (01:34→20:38)
[2020-03-07] MEDS: IPRATROPIUM BR 0.02% INH SOLN 0.5 MG/2.5 ML VIAL INHALATION ×4 (01:35→20:38)
[2020-03-07] MEDS: METOCLOPRAMIDE HCL 5 MG TABLET PO ×4 (06:00→21:54)
[2020-03-07 06:21] LABS: Hematocrit 33.9 % (42.0-52.0); Hemoglobin 10.8 g/dL (14.0-18.0); Mean Corpuscular HGB Conc 31.9 g/dl (32-36); Mean Corpuscular Hemoglobin 26.6 pg (26-34); Mean Corpuscular Volume 83.5 fl (80-100); Mean Platelet Volume 9.6 fl (7.4-10.4); Platelet Count Result 375 k/mm3 (150-375); Red Blood Count 4.06 M/mm3 (4.6-6.20); Red Cell Distribution Width 12.6 % (11.5-14.5); White Blood Count 9.7 K/mm3 (4.5-10.0)
[2020-03-07 06:37] LABS: Alanine Aminotransferase 17 U/L (4-50); Albumin Level 2.8 g/dL (3.5-5.1); Alkaline Phosphatase 145 U/L (38-126); Aspartate Amino Transferase 28 U/L (17-59); Bilirubin,Total 0.5 mg/dL (0.2-1.3); Blood Urea Nitrogen 9 mg/dL (9-20); CRP 7.5 mg/dL (<1.0); Calcium 7.9 mg/dL (8.4-10.2); Carbon Dioxide 33 mmol/L (22-30); Chloride 97 mmol/L (98-107); Estimated CRCL calculation 82 ml/min; Estimated Glomerular Filt Rate > 60; Glucose 175 mg/dL (75-110); Potassium 3.6 mmol/L (3.4-5.0); Sodium 134 mmol/L (137-145)
[2020-03-07 08:11] LABS: Glucose Point of Care 244 (65-105)
--- NOTE | 2020-03-07 08:56 | PM.CNGS ---
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 lower leg with unspecified severity Status: Acute Assessment and Plan: no s/s active infection, will get wound care consult, cont local wound care and await CT results, may need debridement in OR and poss vac placement on calf wound (3) Diabetes mellitus with peripheral vascular disease: Code(s): E11.51 - Type 2 diabetes mellitus with diabetic peripheral angiopathy without gangrene Status: Acute Assessment and Plan: cont current mgmt per primary team (4) Altered mental status: Code(s): R41.82 - Altered mental status, unspecified Status: Acute Assessment and Plan: seems to be back at baseline but likely component of dementia History of Present Illness Consult details Consult date: 03/07/20 Reason for consult: ischemic leg (left lower extremity) Narrative: Pt is a 74 y/o M c multiple med issues including DM, severe PVD s/p R BKA presenting initially c MS changes. Pt was found to have severe LLE PVD and multiple LLE ischemic ulcers. Pt has since had angioplasty of his LLE. GS now consulted for LLE wound care. Pt is apparently back to baseline but is very poor historian. Pt reports some mild pain in LLE dragan c movt. Review of Systems Review of Systems: ROS unobtainable: Yes unobtainable due to mental status PMFSH Past Medical History Medical History Acute urinary retention September 2019 due to fecal impact Chronic pancreatitis Noted on imaging September 2019 Diabetes mellitus with peripheral vascular disease Diabetic neuropathy HLD (hyperlipidemia) PVD (peripheral vascular disease) Surgical History Surgical History History of orchiectomy left Hx of appendectomy Hx of right BKA Hx of tonsillectomy Family History Family History Father Congestive heart failure Mother , age 95 No problems noted. Sibling , sister at age 69; had drug addiction Drug addiction Social History Social History Social History: patient currently resides at [facility] for rehab. He is . He has 3 sons. He designates his son Gabo Rojas as his POA. He wishes to be a DNR. Smoking packs per day: 1 Smoking cigarettes per day: 20.0 Years smoked: 20 Smoking pack-years: 20.00 Smoking status: Former smoker Alcohol intake: never Substance use: never Additional living arrangements comments: Patient currently at [facility] for rehab after right BKA in May 2019. Gender identity (if verbalized by the patient): Male Spiritual care concerns: No Agree to blood products: Yes Meds Home Medications and Allergies Home Medications Medication Instructions Recorded Confirmed Type Daily Multivitamin 1 cap BYMOUTH DAILY 10/02/19 03/03/20 History Januvia 100 mg PO DAILY 10/02/19 03/03/20 History aspirin [Aspirin Low Dose] 81 mg PO DAILY 10/02/19 03/03/20 History metformin 500 mg PO BID 10/02/19 03/03/20 History metoclopramide HCl [Reglan] 5 mg PO ACHS 30 Days #120 tablet 10/05/19 03/03/20 Rx polyethylene glycol 3350 [Miralax] 17 g PO Q12HR 30 Days #60 each 10/05/19 03/03/20 Rx amino acids-protein hydrolys 30 ea PO BID 03/03/20 03/03/20 History [Pro-Stat Sugar Free
--- NOTE | 2020-03-07 10:50 | PCOTNOTE ---
Patient down for MRI. Will attempt OT evaluation at later time.
--- NOTE | 2020-03-07 11:08 | PM.IMPN ---
Progress Note: A&P Assessment and Plan (1) Sepsis: Qualifiers: Sepsis type: sepsis due to unspecified organism Code(s): A41.9 - Sepsis, unspecified organism Status: Resolved Assessment and Plan: The patient met SIRS criteria at admission with tachypnea and leukocytosis. The suspected source is pneumonia versus his left lower extremity ulcer. He is on IV antibiotics and IV fluids. Blood cultures reveal NGTD. Wound cultures reveal pseudomonas and now show staphylococcus aureus with sensitivities pending. He is hemodynamically stable. Continue IV zosyn. Will add IV vancomycin for staphylococcus aureus. Continue to monitor (2) Pneumonia: Qualifiers: Laterality: left Lung location: lower lobe of lung Pneumonia type: due to unspecified organism Qualified Code(s): J18.9 - Pneumonia, unspecified organism Code(s): J18.9 - Pneumonia, unspecified organism Status: Acute Assessment and Plan: CXR revealed density in the left lower lobe suspicious for pneumonia. COVID-19 testing was negative. Urine legionella and pneumococcal antigens and sputum culture are pending. He is stable on room air without any complaints of shortness of breath, cough, subjective fever, or chills. He is afebrile without leukocytosis. Blood cultures reveal NGTD. Continue IV zosyn Continue mucinex Continue bronchodilators. Will schedule due to suspicion for COPD as he has a hx of smoking and CO2 is elevated with diminished breath sounds. I recommend outpatient PFTs. 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 Dr. Hays is on board for concomitant PAD with critical limb threatening ischemia and he underwent angioplasty of the left AT and left peroneal arteries. Wound culture reveals heavy growth of pseudomonas aeruginosa which is susceptible to zosyn. Wound cultures are also showing staphylococcus aureus. Blood cultures reveal NGTD. Plain films revealed no evidence of osteomyelitis. He is afebrile. ALP was elevated at admission and is trending down. General surgery was consulted fur an opinion regarding the need for debridement as the wound has more purulent drainage yesterday. There is no evidence for cellulitis. MRI is pending to r/o osteomyelitis. General surgery is on board and recommends continued wound care with possible debridement in the OR and possible wound vac placement Continue IV zosyn and will add IV vancomycin. Await results of MRI I have also consulted ID as well (4) PVD (peripheral vascular disease): Code(s): I73.9 - Peripheral vascular disease, unspecified Status: Acute Assessment and Plan: The patient presented with critical limb threatening ischemia of the left lower extremity. He has a right BKA. He was placed on heparin gtt and Dr. Christy was consulted. He underwent angiogram 03/06/[address] Christy which revealed severe PVD with subtotal occlusion of the AT, PT, and peroneal at the left side which improved after angioplasty to the AT and peroneal artery with improvement of the flow distally. He has strong doppler signal present to the left PT. Continue ASA EC 81mg indefinitely per Dr. Christy Begin plavix indefinitely per Dr. Christy Continue atorvastatin Follow-up with Dr. Christy outpatient (5) Hypoglycemia associated with diabetes: Code(s): E11.649 - Type 2 diabetes mellitus with hypoglycemia without coma Sta
--- NOTE | 2020-03-07 12:19 | PCOTNOTE ---
Patient down for MRI on second OT eval attempt. Per surgeon note, patient may need debridement or wound Vac. Will attempt OT evaluation when medically appropriate.
[2020-03-07] MEDS: ASPIRIN 81 MG ENTERIC TABLET PO (13:26)
[2020-03-07] MEDS: polyethylene glycoL 3350 17 GM POWD.PACK PO ×2 (13:26→21:54)
[2020-03-07] MEDS: MULTIVITAMINS THERAPEUTIC TAB (*BKC) 1 TABLET PO (13:26)
[2020-03-07] MEDS: ENOXAPARIN 40 MG/0.4 ML SYRINGE SUB-Q (13:27)
[2020-03-07] MEDS: CLOPIDOGREL BISULFATE 75 MG TABLET PO (13:27)
[2020-03-07] MEDS: SILVERGEL (ELTA) 45 ML 1 APPLIC TOPICAL (13:29)
[2020-03-07 13:50] LABS: Glucose Point of Care 115 (65-105)
--- NOTE | 2020-03-07 13:52 | PCPTNOTE ---
Per conversation with OTR, pt has undergone further testing of L LE - results of MRI unknown at present. General surgeon has been consulted. Will check with PAC/hospitalist 03/08/20 in regards to pt's status and their plan for PT intervention.
--- NOTE | 2020-03-07 16:07 | PC.NURSE ---
Patient down for MRI from 1000 to 1300.
--- NOTE | 2020-03-07 17:37 | WPDINFPN2 ---
Progress Note: A&P Additional Plan Patient was seen and consult dictated. Thank you. Subjective Date/time seen: 03/07/20 17:37 Objective Data Vital Signs Vital Signs: Vital Signs - 24 hr 03/06/20 18:50 03/06/20 20:00 03/06/20 20:34 Temperature 37.2 C Pulse Rate 82 71 70 Respiratory Rate 16 16 Blood Pressure 122/65 Pulse Oximetry 97 03/06/20 20:44 03/06/20 21:10 03/07/20 00:00 Temperature 36.6 C Pulse Rate 73 78 67 Respiratory Rate 16 16 Blood Pressure 124/49 L Pulse Oximetry 95 03/07/20 01:38 03/07/20 01:48 03/07/20 04:00 Temperature Pulse Rate 76 77 75 Respiratory Rate 16 16 Blood Pressure Pulse Oximetry 03/07/20 06:00 03/07/20 08:00 03/07/20 08:36 Temperature 36.2 C L Pulse Rate 78 69 70 Respiratory Rate 18 16 Blood Pressure 160/70 H Pulse Oximetry 98 98 03/07/20 08:43 03/07/20 14:00 03/07/20 14:33 Temperature 36.3 C L Pulse Rate 80 76 85 Respiratory Rate 16 18 16 Blood Pressure 140/57 L Pulse Oximetry 100 03/07/20 14:40 Temperature Pulse Rate 76 Respiratory Rate 16 Blood Pressure Pulse Oximetry Intake/Output Intake/Output: Intake & Output 03/04/20 03/05/20 03/06/20 03/07/20 23:59 23:59 23:59 23:59 Intake Total 2931 1309 1420 500 Balance 2931 1309 1420 500 Meds/Results Medications: Active Medications Generic Name Dose Route Start Last Admin Trade Name Freq PRN Reason Stop Dose Admin Acetaminophen 650 mg 03/03/20 17:39 Tylenol Tablet PO Q4H PRN Mild Pain (1-3) or Fever Hydrocodone Bitart/Acetaminophen 1 tab 03/03/20 17:39 03/06/20 17:22 [place] 5-325 Mg PO 1 tab Q4H PRN Administration Pain Rated 4-6 Albuterol 2.5 mg 03/06/20 20:00 03/07/20 14:31 Albuterol Sulf Neb 2.5mg/0.5ml INHALATION 2.5 mg Q6HRT SHAYY Administration Aspirin 81 mg 03/04/20 09:00 03/07/20 13:26 Aspirin Ec PO 81 mg DAILY SHAYY Administration Atorvastatin Calcium 20 mg 03/04/20 21:00 03/06/20 21:18 Lipitor PO 20 mg HS SHAYY Administration Clopidogrel Bisulfate 75 mg 03/06/20 09:00 03/07/20 13:27 Plavix PO 75 mg QAM SHAYY Administration Dextrose 12.5 gm 03/03/20 20:28 Dextrose 50% Syringe IV PUSH PRN PRN Hypoglycemia Protocol Enoxaparin Sodium 40 mg 03/06/20 11:20 03/07/20 13:27 Lovenox SUB-Q 40 mg DAILY SHAYY Administration Glucagon 1 mg 03/03/20 20:28 Glucagon For Inj IM PRN PRN Hypoglycemia Protocol Glucose 15 gm 03/03/20 20:28 Glutose 15 PO PRN PRN Hypoglycemia Protocol Guaifenesin 1,200 mg 03/05/20 21:00 03/07/20 13:25 Mucinex 12 Hr Tab PO 1,200 mg Q12HR SHAYY Administration Dextrose 1,000 mls @ 100 mls/hr 03/03/20 20:28 Dextrose 5% 1,000 Ml IVPB PRN PRN Hypoglycemia Protocol Piperacillin/Tazobactam/Dextrose 3.375 gm in 50 mls @ 100 mls/hr 03/05/20 18:00 03/07/20 13:29 Zosyn 3.375 Gm/D5w 50ml Pm IVPB 100 mls/hr Q6HR SHAYY Administration Vancomycin HCl 1,000 mg in 250 mls @ 250 mls/hr 03/07/20 13:00 03/07/20 14:37 Vancomycin 1,000 Mg/D5w 250 Ml IVPB 250 mls/hr Q12H SHAYY Administration Insulin Aspart 2 - 5 units 03/04/20 08:00 03/07/20 13:25 Novolog SUB-Q Not Given TIDWM REPLACED BY [facility] Protocol Insulin Glargine 25 units 03/07/20 11:42 Lantus SUB-Q HS SHAYY Ipratropium [place] 0.5 mg 03/06/20 20:00 03/07/20 14:31 Atrovent Neb INHALATION 0.5 mg Q6HRT SHAYY Administration Metoclopramide HCl 5 mg 03/04/20 06:30 03/07/20 13:27 Reglan PO 5 mg ACHS SHAYY Administration Morphine Sulfate 4 mg 03/03/20 17:39 Morphine Sulfate Inj IV PUSH Q2H PRN Pain Rated 7-10 Multivitamins Therapeutic 1 tablet 03/04/20 09:00 03/07/20 13:26 Multivitamins Therapeutic(*Bkc PO 1 tablet DAILY SHAYY Administration Ondansetron HCl 4 mg 03/03/20 17:39 Zofran Inj IV PUSH Q4H PRN Nausea Polyethylene Gl
[2020-03-07 17:57] LABS: Hemoglobin A1C 6.4 % (<5.7)
[2020-03-07 18:26] LABS: Glucose Point of Care 136 (65-105)
[2020-03-07] MEDS: ATORVASTATIN 20 MG TABLET PO (21:54)
[2020-03-07] MEDS: INSULIN GLARGINE (*BKC) 100 UNITS/ML 25 UNITS SUB-Q (22:03)
[2020-03-07 22:30] LABS: Glucose Point of Care 165 (65-105)
--- NOTE | 2020-03-07 23:26 | CONS_ITS ---
DATE OF CONSULTATION: 03/07/2020 REQUESTING PHYSICIAN: Physician surveyor instrument assistant, Anita Monzon. REASON FOR CONSULTATION: Left lower extremity chronic ulcer with necrotic tissue and infection. HISTORY OF PRESENT ILLNESS: This is a 74-year-old male with past medical history for type 2 diabetes, severe peripheral vascular disease, admitted to the hospital on 03/03/2020 for change in mental status associated with low blood sugar. On admission, patient was also noted to have chronic left lower extremity heel eschar and on the lateral aspect of the randolph and lateral aspect of ankle ulcer with an open wound. Full facial was admitted for further workup. I was requested to see him due to culture showing Pseudomonas and Staph aureus from right lower extremity ulcer. Currently, the patient is minimally verbal. Not in distress. Denies any nausea or vomiting. Denies any pain to the lower extremity. Denies any shortness of breath. PAST MEDICAL HISTORY: Peripheral vascular disease, type 2 diabetes, diabetic neuropathy, hyperlipidemia, chronic pancreatitis, acute urinary retention. PAST SURGICAL HISTORY: Orchiectomy left, appendectomy, right BKA, tonsillectomy. FAMILY HISTORY: Positive for congestive heart failure, substance abuse. SOCIAL HISTORY: Former smoker, 1 pack per day x20 years, resident of [facility]. Denies any alcohol or substance abuse. MEDICATIONS: Medications at the long-term: Januvia, aspirin, metformin, Reglan, MiraLAX, atorvastatin, insulin, Lantus. Medications in the hospital: Currently he is on Zosyn and vancomycin, insulin, atorvastatin, metoclopramide, aspirin, polyethylene glycol, Plavix, Atrovent, Zofran. REVIEW OF SYSTEMS: No headache. No fever. No conjunctival injection. Nonicteric sclera. No tinnitus. No sore throat. No pharyngeal injection. No neck pain. No shortness of breath. No orthopnea. No PND. No paroxysmal nocturnal dyspnea. No chest pain. No abdominal pain. No nausea. No vomiting. No diarrhea. No constipation. No melena. No hematemesis or hematochezia. No dysuria. No hematuria. No scrotal edema. No penile discharge. Positive left lower extremity chronic ulcer. No joint swelling. No pain. No skin rash. No petechia, no hemorrhages, no purpura. Chronic eschar on the left heel and lateral aspect of the randolph and ankle area. No PTT and no hemorrhages. No purpura. No epistaxis. No gum bleeding. No lymphadenopathy. No focal neurological deficit. No syncope. No seizure activity. No photophobia. PHYSICAL EXAMINATION: VITAL SIGNS: Temperature 36, pulse rate of 76, respiratory rate of 16, blood pressure of 140/57. HEAD AND NECK: Normocephalic, atraumatic. Neck supple. There is no JVD. No lymphadenopathy. LUNGS: Good bilateral air entry. No rales, no wheeze. CARDIOVASCULAR SYSTEM: Positive S1, positive S2. No S3, S4. No murmur. ABDOMEN: Positive bowel sounds. Nontender. No organomegaly. No mass. EXTREMITIES: Left lower extremity, no edema. No joint effusion. Dorsalis pedis pulses are not palpable. A large dry eschar is present in the heel of the left foot on the lateral aspect of the ankle extending up to the mid aspect of the randolph. There is a large opening with intermittent area of eschar. No maría drainage. No tenderness. NEUROLOGICAL: He is alert, awake, oriented. No focal deficit. LABORATORY EXAMINATION: MRI of the left lower extremity, osteomyelitis involving the middle and the distal 3rd of the fibula. Diffuse musculature abnormalities. Partial tear of peroneus brevis and peroneus longus tendon. MRI of the foot, osteomyelitis involving the distal fibula, base of the 5th metatarsal and calcaneus bone. White count is 9, hemoglobin of 10, hematocrit 38, platelet of 375. S
[2020-03-08] VITALS (7 sets, daily range): BP systolic 145–146; BP diastolic 52–53; PULSE 70–78; RESP 16–18; TEMP 36.3–36.4; O2SAT 96–99
[2020-03-08] MEDS: IPRATROPIUM BR 0.02% INH SOLN 0.5 MG/2.5 ML VIAL INHALATION ×3 (02:15→13:56)
[2020-03-08] MEDS: ALBUTEROL SULFATE NEB 2.5 MG/0.5 ML INH INHALATION ×3 (02:16→13:56)
[2020-03-08 05:55] LABS: Hematocrit 32.8 % (42.0-52.0); Hemoglobin 10.7 g/dL (14.0-18.0); Mean Corpuscular HGB Conc 32.6 g/dl (32-36); Mean Corpuscular Hemoglobin 26.8 pg (26-34); Mean Corpuscular Volume 82.2 fl (80-100); Mean Platelet Volume 9.2 fl (7.4-10.4); Platelet Count Result 386 k/mm3 (150-375); Red Blood Count 3.99 M/mm3 (4.6-6.20); Red Cell Distribution Width 12.6 % (11.5-14.5); White Blood Count 9.4 K/mm3 (4.5-10.0)
[2020-03-08 06:11] LABS: Blood Urea Nitrogen 5 mg/dL (9-20); Calcium 8.3 mg/dL (8.4-10.2); Carbon Dioxide 37 mmol/L (22-30); Chloride 99 mmol/L (98-107); Estimated CRCL calculation 82 ml/min; Estimated Glomerular Filt Rate > 60; Glucose 87 mg/dL (75-110); Potassium 3.8 mmol/L (3.4-5.0); Sodium 136 mmol/L (137-145)
[2020-03-08 06:16] LABS: Hemoglobin A1C 6.4 % (<5.7)
[2020-03-08] MEDS: METOCLOPRAMIDE HCL 5 MG TABLET PO ×3 (06:18→17:25)
--- NOTE | 2020-03-08 07:45 | PCWOUND ---
WOCN NOTE Received consult to see patient for left leg wound, patient was seen by WOCN previous and has wound care orders in in place.
[2020-03-08] MEDS: MULTIVITAMINS THERAPEUTIC TAB (*BKC) 1 TABLET PO (09:01)
[2020-03-08] MEDS: CLOPIDOGREL BISULFATE 75 MG TABLET PO (09:01)
[2020-03-08] MEDS: ASPIRIN 81 MG ENTERIC TABLET PO (09:01)
[2020-03-08] MEDS: polyethylene glycoL 3350 17 GM POWD.PACK PO (09:01)
[2020-03-08] MEDS: ENOXAPARIN 40 MG/0.4 ML SYRINGE SUB-Q (09:01)
[2020-03-08] MEDS: SILVERGEL (ELTA) 45 ML 1 APPLIC TOPICAL (09:04)
--- NOTE | 2020-03-08 09:07 | PM.PNGS ---
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 Code(s): L97.929 - Non-pressure chronic ulcer of unspecified part of left lower leg with unspecified severity Status: Acute Assessment and Plan: will need cont wound care, ?vac c [place] vs OR debridement, pt wishes for transfer and eval for limb salvage, MRI c evidence of osteo, cont abx (2) Critical lower limb ischemia: Code(s): I99.8 - Other disorder of circulatory system Status: Acute Assessment and Plan: transfer to vascular for further eval and tx (3) PVD (peripheral vascular disease): Code(s): I73.9 - Peripheral vascular disease, unspecified Status: Acute (4) Diabetes mellitus with peripheral vascular disease: Code(s): E11.51 - Type 2 diabetes mellitus with diabetic peripheral angiopathy without gangrene Status: Acute Subjective Subjective Date/Time Seen: 03/08/20 09:07 pt seen c hospitalist DOCUMENT ADVISOR, pt would like limb salvage if possible, discussed need to transfer to vascular surgeon and pt ammendable Review of Systems Constitutional: Constitutional: Reports body ache(s), Denies chills, Reports fatigue and Reports weakness Cardiovascular: Cardiovascular: Denies chest pain and Denies palpitations Respiratory: Respiratory: Denies dyspnea Gastrointestinal: Gastrointestinal: Denies abdominal pain, Denies nausea and Denies vomiting Integumentary/Breasts: Skin/Breast: Reports wounds Exam Const: General: no acute distress Resp: Auscultation: clear to auscultation bilaterally Cardio: Rate: regular rate Rhythm: regular rhythm GI: Other: SNTND Extrem: Other: LLE - drsg C/D/I Objective Data Vital Signs Vital Signs: Vital Signs - 24 hr 03/07/20 14:00 03/07/20 14:33 03/07/20 14:40 Temperature 36.3 C L Pulse Rate 76 85 76 Respiratory Rate 18 16 16 Blood Pressure 140/57 L Pulse Oximetry 100 03/07/20 20:38 03/07/20 20:45 03/07/20 22:00 Temperature 36.3 C L Pulse Rate 73 76 74 Respiratory Rate 16 16 16 Blood Pressure 111/39 L Pulse Oximetry 95 98 03/08/20 02:16 03/08/20 02:24 03/08/20 06:00 Temperature 36.3 C L Pulse Rate 71 70 71 Respiratory Rate 16 16 18 Blood Pressure 145/52 H Pulse Oximetry 99 03/08/20 08:34 03/08/20 08:41 Temperature Pulse Rate 72 74 Respiratory Rate 18 18 Blood Pressure Pulse Oximetry 96 Intake/Output Intake/Output: Intake & Output 03/05/20 03/06/20 03/07/20 03/08/20 23:59 23:59 23:59 23:59 Intake Total 1309 1420 970 420 Balance 1309 1420 970 420 Meds/Results Medications: Active Medications Generic Name Dose Route Start Last Admin Trade Name Freq PRN Reason Stop Dose Admin Acetaminophen 650 mg 03/03/20 17:39 Tylenol Tablet PO Q4H PRN Mild Pain (1-3) or Fever Hydrocodone Bitart/Acetaminophen 1 tab 03/03/20 17:39 03/07/20 17:35 [place] 5-325 Mg PO 1 tab Q4H PRN Administration Pain Rated 4-6 Albuterol 2.5 mg 03/06/20 20:00 03/08/20 08:31 Albuterol Sulf Neb 2.5mg/0.5ml INHALATION 2.5 mg Q6HRT SHAYY Administration Aspirin 81 mg 03/04/20 09:00 03/08/20 09:01 Aspirin Ec PO 81 mg DAILY SHAYY Administration Atorvastatin Calcium 20 mg 03/04/20 21:00 03/07/20 21:54 Lipitor PO 20 mg HS SHAYY Administration Clopidogrel Bisulfate 75 mg 03/06/20 09:00 03/08/20 09:01 Plavix PO 75 mg QAM SHAYY Administration Dextrose 12.5 gm 03/03/20 20:28 Dextrose 50% Syringe IV PUSH PRN PRN Hypoglycemia Protocol Enoxaparin Sodium 40 mg 03/06/20 11:20 03/08/20 09:01 Lovenox SUB-Q 40 mg DAILY SHAYY Administration Glucagon 1 mg 03/03/20 20:28 Glucagon For Inj IM PRN PRN Hypoglycemia Protocol Glucose 15 gm 03/03/20
[2020-03-08 09:09] LABS: Glucose Point of Care 56 (65-105); Glucose Point of Care 65 (65-105)
--- NOTE | 2020-03-08 09:18 | PCPTNOTE ---
Spoke with RN prior to attempting PT eval this a.m. ,yt is being transferred for vascular surgery. PT eval not appropriate at this time.
--- NOTE | 2020-03-08 09:18 | PCOTNOTE ---
Per RN, patient to transfer out to vascular surgeon at other hospital. OT evaluation not appropriate at this time.
[2020-03-08 09:58] LABS: Glucose Point of Care 112 (65-105)
--- NOTE | 2020-03-08 10:14 | PM.TDS ---
Transfer Discharge Sum: Prov Provider Date of admission: 03/04/20 10:21 Primary care physician: Jesus Bryant, MD Admitting clinician: Dinesh Dumont MD Consults: 03/04/20 Consult to Physician Routine Comment: Consulting Provider: Ascencion Christy call center specialist/MD group to consult: Saúl Reason for consultation: limb ischemia Has provider been notified: Yes 03/06/20 Consult to Physician Routine Comment: Consulting Provider: Christine Luke call center specialist/MD group to consult: General surgery Necrotic ulcer, arterial insufficiency s/p revascularization Reason for consultation: As above Has provider been notified: Yes Consult to Physician Routine Comment: PAGED @1781 ([place],), SPOKE TO @1120 ([place],) Consulting Provider: Sumit Williamson call center specialist/MD group to consult: ID Reason for consultation: Necrotic LLE ulcer; pseudomonas on wound culture Has provider been notified: Yes 03/07/20 Consult to Dietitian Routine Reason for Consult:: please advise r/t caloric needs for extensive wound healing and blood glucose control Wound/ET Consult Routine Reason for Consult:: LLE ischemic ulcers 03/08/20 06:00 Wound/ET Consult Routine Reason for Consult:: LLE wounds, sacral/coccyx wound DS: Diagnosis Admitting Diagnosis Admitting Diagnosis: Pneumonia, unspecified organism Discharge Diagnosis (1) Sepsis: Qualifiers: Sepsis type: sepsis due to unspecified organism Code(s): A41.9 - Sepsis, unspecified organism Status: Resolved (2) Pneumonia: Qualifiers: Laterality: left Lung location: lower lobe of lung Pneumonia type: due to unspecified organism Qualified Code(s): J18.9 - Pneumonia, unspecified organism Code(s): J18.9 - Pneumonia, unspecified organism Status: Acute (3) Leg ulcer, left: Qualifiers: Non-pressure ulcer stage: with necrosis of muscle Qualified Code(s): L97.923 - 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 Code(s): L97.929 - Non-pressure chronic ulcer of unspecified part of left lower leg with unspecified severity Status: Acute (4) PVD (peripheral vascular disease): Code(s): I73.9 - Peripheral vascular disease, unspecified Status: Acute (5) Hypoglycemia associated with diabetes: Code(s): E11.649 - Type 2 diabetes mellitus with hypoglycemia without coma Status: Acute (6) COVID-19 ruled out: Code(s): Z03.818 - Encounter for observation for suspected exposure to other biological agents ruled out Status: Ruled-out (7) HLD (hyperlipidemia): Code(s): E78.5 - Hyperlipidemia, unspecified Status: Acute (8) Altered mental status: Code(s): R41.82 - Altered mental status, unspecified Status: Acute Assessment and Plan: Transfer Discharge Sum: Med Medications Active and Home Medications: Home Medications Daily Multivitamin 1 cap BYMOUTH DAILY 10/02/19 [History Confirmed 03/03/20] Januvia 100 mg PO DAILY 10/02/19 [History Confirmed 03/03/20] aspirin [Aspirin Low Dose] 81 mg PO DAILY 10/02/19 [History Confirmed 03/03/20] metformin 500 mg PO BID 10/02/19 [History Confirmed 03/03/20] metoclopramide HCl [Reglan] 5 mg PO ACHS 30 Days #120 tablet 10/05/19 [Rx Confirmed 03/03/20] polyethylene glycol 3350 [Miralax] 17 g PO Q12HR 30 Days #60 each 10/05/19 [Rx Confirmed 03/03/20] amino acids-protein hydrolys [Pro-Stat Sugar Free] 30 ea PO BID 03/03/20 [History Confirmed 03/03/20] atorvastatin 20 mg PO HS 03/03/20 [History Confirmed 03/03/20] insulin glargine [Lantus U-100 Insulin] 35 unit SUBCUT HS 03/03/20 [History Confirmed 03/03/20] insulin lispro See Rx Instructions .ROUTE .COMPLEX 03/03/20 [History Confirmed 03/03/20] Active Medications Acetaminophen (Tylenol Tablet) 650 mg PO Q4H PRN PRN Reason: Mild Pain (1-3) or Fever Hydrocodone Bitart/Acetaminophen ([place] 5-3
[2020-03-08 12:44] LABS: Glucose Point of Care 168 (65-105)
--- NOTE | 2020-03-08 14:51 | PM.PNCARD ---
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 He underwent angiogram revealing right common iliac artery stent appears stenosis, left popliteal severe stenosis, total occlusion of the left antral tibial, total occlusion of the left peroneal, and subtotal occlusion of the left posterior tibial. He underwent balloon angioplasty with significant improvement of the lesions in the peroneal and with the anterior tibial with significant improvement of the flow. 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 Continue wound care. Continue aspirin and Plavix (3) Diabetes mellitus with peripheral vascular disease: Code(s): E11.51 - Type 2 diabetes mellitus with diabetic peripheral angiopathy without gangrene Status: Acute (4) Non-healing ulcer of left ankle: Code(s): L97.329 - Non-pressure chronic ulcer of left ankle with unspecified severity Status: Acute Assessment and Plan: S/p Revascularization to improve the healing of the ulcer. w Subjective Date/time seen: 03/08/20 14:51 Feels better today, left ankle is dressed, he was seen by General surgery, and it was decided to transfer to [facility] for debridement Exam Narrative: Exam Narrative: Awake alert oriented x3 not in acute distress, he is oriented, but he has not very good with detailed seems to be slightly confused on details Neck is supple no obvious JVD, no carotid bruit Chest: Good air entry bilaterally, lungs are clear to auscultation and percussion bilaterally Cardiovascular: Regular rate and rhythm, 2/6 systolic murmur noted left sternal border Abdomen: Soft nontender bowel sounds positive Extremities: No edema has no pulses on the left foot, anterior tibial is palpable now Objective Data Vital Signs Vital Signs: Vital Signs - 24 hr 03/07/20 20:38 03/07/20 20:45 03/07/20 22:00 Temperature 36.3 C L Pulse Rate 73 76 74 Respiratory Rate 16 16 16 Blood Pressure 111/39 L Pulse Oximetry 95 98 03/08/20 02:16 03/08/20 02:24 03/08/20 06:00 Temperature 36.3 C L Pulse Rate 71 70 71 Respiratory Rate 16 16 18 Blood Pressure 145/52 H Pulse Oximetry 99 03/08/20 08:34 03/08/20 08:41 03/08/20 13:57 Temperature Pulse Rate 72 74 76 Respiratory Rate 18 18 18 Blood Pressure Pulse Oximetry 96 03/08/20 14:05 Temperature Pulse Rate 76 Respiratory Rate 18 Blood Pressure Pulse Oximetry Intake/Output Intake/Output: Intake & Output 03/05/20 03/06/20 03/07/20 03/08/20 23:59 23:59 23:59 23:59 Intake Total 1309 1420 970 880 Balance 1309 1420 970 880 Meds/Results Medications: Active Medications Generic Name Dose Route Start Last Admin Trade Name Freq PRN Reason Stop Dose Admin Acetaminophen 650 mg 03/03/20 17:39 Tylenol Tablet PO Q4H PRN Mild Pain (1-3) or Fever Hydrocodone Bitart/Acetaminophen 1 tab 03/03/20 17:39 03/08/20 09:23 [place] 5-325 Mg PO 1 tab Q4H PRN Administration Pain Rated 4-6 Albuterol 2.5 mg 03/06/20 20:00 03/08/20 13:56 Albuterol Sulf Neb 2.5mg/0.5ml INHALATION 2.5 mg Q6HRT SHAYY Administration Aspirin 81 mg 03/04/20 09:00 03/08/20 09:01 Aspirin Ec PO 81 mg DAILY SHAYY Administration Atorvastatin Calcium 20 mg 03/04/20 21:00 03/07/20 21:54 Lipitor PO 20
--- NOTE | 2020-03-08 15:32 | WPDINFPN2 ---
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 Stuart. Subjective Date/time seen: 03/08/20 15:32 Interval history: no new complaints Exam Narrative: Exam Narrative: afrebrile Const: General: no acute distress Resp: Effort & Inspection: normal respiratory effort Auscultation: clear to auscultation bilaterally Cardio: Rate: regular rate Rhythm: regular rhythm Extrem: Other: l leg dressed, + tender, no odor and no drainage Objective Data Vital Signs Vital Signs: Vital Signs - 24 hr 03/07/20 20:38 03/07/20 20:45 03/07/20 22:00 Temperature 36.3 C L Pulse Rate 73 76 74 Respiratory Rate 16 16 16 Blood Pressure 111/39 L Pulse Oximetry 95 98 03/08/20 02:16 03/08/20 02:24 03/08/20 06:00 Temperature 36.3 C L Pulse Rate 71 70 71 Respiratory Rate 16 16 18 Blood Pressure 145/52 H Pulse Oximetry 99 03/08/20 08:34 03/08/20 08:41 03/08/20 13:57 Temperature Pulse Rate 72 74 76 Respiratory Rate 18 18 18 Blood Pressure Pulse Oximetry 96 03/08/20 14:05 Temperature 36.4 C Pulse Rate 78 Respiratory Rate 18 Blood Pressure 146/53 H Pulse Oximetry 96 Intake/Output Intake/Output: Intake & Output 03/05/20 03/06/20 03/07/20 03/08/20 23:59 23:59 23:59 23:59 Intake Total 1309 1420 970 880 Balance 1309 1420 970 880 Meds/Results Medications: Active Medications Generic Name Dose Route Start Last Admin Trade Name Freq PRN Reason Stop Dose Admin Acetaminophen 650 mg 03/03/20 17:39 Tylenol Tablet PO Q4H PRN Mild Pain (1-3) or Fever Hydrocodone Bitart/Acetaminophen 1 tab 03/03/20 17:39 03/08/20 09:23 [place] 5-325 Mg PO 1 tab Q4H PRN Administration Pain Rated 4-6 Albuterol 2.5 mg 03/06/20 20:00 03/08/20 13:56 Albuterol Sulf Neb 2.5mg/0.5ml INHALATION 2.5 mg Q6HRT SHAYY Administration Aspirin 81 mg 03/04/20 09:00 03/08/20 09:01 Aspirin Ec PO 81 mg DAILY SHAYY Administration Atorvastatin Calcium 20 mg 03/04/20 21:00 03/07/20 21:54 Lipitor PO 20 mg HS SHAYY Administration Clopidogrel Bisulfate 75 mg 03/06/20 09:00 03/08/20 09:01 Plavix PO 75 mg QAM SHAYY Administration Dextrose 12.5 gm 03/03/20 20:28 Dextrose 50% Syringe IV PUSH PRN PRN Hypoglycemia Protocol Enoxaparin Sodium 40 mg 03/06/20 11:20 03/08/20 09:01 Lovenox SUB-Q 40 mg DAILY SHAYY Administration Glucagon 1 mg 03/03/20 20:28 Glucagon For Inj IM PRN PRN Hypoglycemia Protocol Glucose 15 gm 03/03/20 20:28 Glutose 15 PO PRN PRN Hypoglycemia Protocol Guaifenesin 1,200 mg 03/05/20 21:00 03/08/20 09:01 Mucinex 12 Hr Tab PO 1,200 mg Q12HR SHAYY Administration Dextrose 1,000 mls @ 100 mls/hr 03/03/20 20:28 Dextrose 5% 1,000 Ml IVPB PRN PRN Hypoglycemia Protocol Piperacillin/Tazobactam/Dextrose 3.375 gm in 50 mls @ 100 mls/hr 03/05/20 18:00 03/08/20 13:45 Zosyn 3.375 Gm/D5w 50ml Pm IVPB Infused Q6HR SHAYY Infusion Vancomycin HCl 1,000 mg in 250 mls @ 250 mls/hr 03/07/20 13:00 03/08/20 13:49 Vancomycin 1,000 Mg/D5w 250 Ml IVPB 250 mls/hr Q12H SHAYY Administration Insulin Aspart 2 - 5 units 03/04/20 08:00 03/08/20 13:00 Novolog SUB-Q Not Given TIDWM SHAYY Protocol Insulin Glargine 25 units 03/07/20 11:42 03/07/20 22:03 Lantus SUB-Q 25 units HS [facility] Administration Ipratropium [place] 0.5 mg 03/06/20 20:00 03/08/20 13:56
[2020-03-08 17:47] LABS: Glucose Point of Care 195 (65-105)
--- NOTE | 2020-03-10 08:39 | PC.NURSE ---
Blood cx are negative.
== END 2020-03-08 18:53 | disposition short-term general hospital (02) | DRG 853 ==
LOC: ANHED 17:56 → ANH3MEDSUR 19:44 → ANHICU 03-05 22:15 → ANH3MEDSUR 03-06 09:10 → ANHICU 03-11 10:49
PROVIDERS: Internal Medicine; Internal Medicine Infectious Disease; Physician Assistant; Specialist; Admitting Provider Internal Medicine; Emergency Provider Emergency Medicine; PCP Internal Medicine; Visit Provider Family Medicine
PROC: 047Q3ZZ Dilation of Left Anterior Tibial Artery, Percutaneous Approach (ICD-10-PCS; CPT 75630; principal; 2020-03-05 13:30)
PROC: 047Q3ZZ Dilation of Left Anterior Tibial Artery, Percutaneous Approach (ICD-10-PCS; CPT 37228; 2020-03-05 13:30)
PROC: 047Q3ZZ Dilation of Left Anterior Tibial Artery, Percutaneous Approach (ICD-10-PCS; CPT 36200; 2020-03-05 13:30)
PROC: 047Q3ZZ Dilation of Left Anterior Tibial Artery, Percutaneous Approach (ICD-10-PCS; CPT 37228; 2020-03-05 13:30)
PROC: 047Q3ZZ Dilation of Left Anterior Tibial Artery, Percutaneous Approach (ICD-10-PCS; CPT 36140; 2020-03-05 13:30)
DX: A41.9 Sepsis, unspecified organism (principal); L89.893 Pressure ulcer of other site, stage 3; J18.9 Pneumonia, unspecified organism; G93.41 Metabolic encephalopathy; L03.116 Cellulitis of left lower limb; M86.18 Other acute osteomyelitis, other site; E11.51 Type 2 diabetes mellitus with diabetic peripheral angiopathy without gangrene; I77.89 Other specified disorders of arteries and arterioles; E11.69 Type 2 diabetes mellitus with other specified complication; Z20.828 Contact with and (suspected) exposure to other viral communicable diseases; E11.649 Type 2 diabetes mellitus with hypoglycemia without coma; E11.42 Type 2 diabetes mellitus with diabetic polyneuropathy; L89.322 Pressure ulcer of left buttock, stage 2; L89.312 Pressure ulcer of right buttock, stage 2; L89.629 Pressure ulcer of left heel, unspecified stage; L89.529 Pressure ulcer of left ankle, unspecified stage; B96.5 Pseudomonas (aeruginosa) (mallei) (pseudomallei) as the cause of diseases classified elsewhere; B95.62 Methicillin resistant Staphylococcus aureus infection as the cause of diseases classified elsewhere; F03.90 Unspecified dementia, unspecified severity, without behavioral disturbance, psychotic disturbance, mood disturbance, and anxiety; Z66 Do not resuscitate; E78.5 Hyperlipidemia, unspecified; Z89.511 Acquired absence of right leg below knee; Z87.891 Personal history of nicotine dependence; Z79.82 Long term (current) use of aspirin
CPT/HCPCS: 36140; 36200; 36415; 37228; 37232; 51701; 71045; 73590; 73630; 73720; 75630; 80048; 80053; 80061; 80202; 81001; 83036; 83605; 83735; 85025; 85027; 85610; 85730; 86140; 87040; 87070; 87077; 87147; 87186; 87205; 87635; 93005; 93306; 93925; 94640; 96361; 96365; 96366; 96367; 96375; 99285; A9270; A9577; C1725; C1769; C1887; C1894; G0378; J0456; J0696; J1644; J1650; J1815; J2250; J2543; J3010; J3370; J7030; J7040; U0003